=== PATIENT | female | born 1950 | race Caucasian/White ===

== ENCOUNTER 2024-05-26 14:17 | Outpatient (CLI) | payer MEDICARE, OTHER, SELFPAY ==
--- NOTE | ~2024-05-26 | CT_ITS ---
EXAMINATION: CT shoulder RT wo con DATE: 05/26/2024 14:28 INDICATION: Right shoulder osteoarthritis. Preoperative planning. TECHNIQUE: Computed tomography (CT) of the right shoulder was performed without intravenous contrast. Automated exposure control and iterative reconstruction technique were employed. The dose-length pro duct was 270.06 mGy-cm. COMPARISON: None FINDINGS: Alignment is normal. No fracture. There is severe osteoarthritis of acromioclavicular joint . There is advanced osteoarthritis of glenohumeral joint including bone volume loss of the glenoid. T here is severe subacromial/subdeltoid bursitis with loose bodies. There is a moderate-sized glenohume ral joint with loose bodies. There is mild fatty atrophy of supraspinatus and teres minor muscle millan ies. IMPRESSION: 1. Advanced glenohumeral joint osteoarthritis including bone volume loss of the glenoid. 2. Severe osteoarthritis of acromioclavicular joint. 3. Severe subacromial/subdeltoid bursitis with loose bodies. 4. Moderate-sized glenohumeral joint effusion with loose bodies. Reviewed, dictated and finalized at location A. THERAPY ASST
== END 2024-05-26 14:18 | disposition home or self-care (01) ==
LOC: ANHIMG 14:18
PROVIDERS: Visit Provider Orthopaedic Surgery
DX: Z01.818 Encounter for other preprocedural examination (principal); M19.011 Primary osteoarthritis, right shoulder; M75.51 Bursitis of right shoulder; M24.011 Loose body in right shoulder; M25.411 Effusion, right shoulder
CPT/HCPCS: 73200

== ENCOUNTER 2024-08-10 11:19 | Outpatient (CLI) | payer MEDICARE, OTHER, SELFPAY ==
[2024-08-10 13:07] LABS: Basophils Absolute Auto 0.1 K/mm3 (0.0-0.1); Basophils Percent Auto 1.2 % (0.2-1.2); Eosinophils Absolute Auto 0.1 K/mm3 (0-0.3); Eosinophils Percent Auto 1.6 % (0-4.4); Hematocrit 44.2 % (37.0-47.0); Hemoglobin 14.8 g/dL (12.0-15.0); Immature Granulocyte Absolute 0.02 K/mm3 (0.00-0.031); Immature Granulocyte Percent A 0.3 % (0-0.5); Lymphocytes Absolute Auto 1.86 K/mm3 (0.9-3.2); Lymphocytes Percent Auto 24.3 % (18.3-44.2); Mean Corpuscular HGB Conc 33.5 g/dl (32-36); Mean Corpuscular Hemoglobin 31.2 pg (26-34); Mean Corpuscular Volume 93.1 fl (80-100); Mean Platelet Volume 9.6 fl (7.4-10.4); Monocytes Absolute Auto 0.7 K/mm3 (0.1-0.6); Monocytes Percent Auto 9.1 % (2.6-8.5); Neutrophils Absolute Auto 4.9 K/mm3 (1.3-6.7); Neutrophils Percent Auto 63.5 % (45.5-73.1); Platelet Count Result 226 k/mm3 (150-375); Red Blood Count 4.75 M/mm3 (4.2-5.4); Red Cell Distribution Width 12.3 % (11.5-14.5); White Blood Count 7.7 K/mm3 (4.5-10.0)
[2024-08-10 14:43] LABS: MRSA (PCR) NOT DETECTED (NOT DETECTE)
--- OUTSIDE RECORDS SUMMARY | 2024-08-11 23:55 | XMS_ITS | Patient Health Summary ---
Author Organization [facility] Address [address] [place] [address] Care Team Providers Care Communication Analyst Name Role Phone Unknown, Provider Primary Care Provider Unavaila ble Note from [facility],non-owned Affiliates and Associated Physician Practices is amultiple site organization consisting of ambulatory clinics and hospital sitesin [place], [place], [place] and [place]. This disclosure is being madepursuant to the Care Everywhere program and may not contain all information available regarding this patient. Last updated 18.[facility] [employer] Allergies * Propranolol Hcl Cr * Penicillins Medications * Be aware that medications may not be up to date on this document. Alwaysverify current medications with the patient. * Cholecalciferol (VITAMIN D3) 3000 UNITS Take 3,000 Units by mouth Reasons: 3x a week * Multiple Vitamin (MULTI VITAMIN DAILY PO) Take by mouth once daily * Probiotic Product (PROBIOTIC DAILY PO) Take by mouth once daily * [id number] PO * Walnut-3 Fatty Acids (FISH OIL) 1000 MG capsule Take 1,000 mg by mouth once daily Reported on 08/08/2016 * [place] 3 340 MG capsule Take 1 Cap by mouth once daily * metoprolol succinate XL 24hr (TOPROL XL) 25 MG tablet Take 25 mg by mouth once daily * levothyroxine (SYNTHROID) 150 MCG tablet Take 150 mcg by mouth daily before breakfast Social History Tobacco Use Types Packs/Day Years Used Date Smoking Tobacco: Never Sex and Gender Information Value Date Recorded Sex Assigned at Not on file Gender Identity Not on file Sexual Orientation Not on file Last Filed Vital Signs Vital Sign Reading Time Taken Comments Blood Pressure 146/97 08/08/2016 11:03 AM FOREIGN TRADE TEACHER Pulse 72 08/08/2016 11:03 AM FOREIGN TRADE TEACHER Temperature - - Respiratory Rate - - Oxygen Saturation - - Inhaled Oxygen Concentration - - Weight 79.4 kg (175 lb) 08/08/2016 11:03 AM FOREIGN TRADE TEACHER Height 162.6 cm (5' 4 ) 08/08/2016 11:03 AM FOREIGN TRADE TEACHER Body Mass Index 30.04 08/08/2016 11:03 AM FOREIGN TRADE TEACHER Procedures * URINALYSIS AUTO - POINT OF CARE(Performed 08/08/2016) Performed for Hematuria Results * URINALYSIS AUTO - POINT OF CARE (08/08/2016 11:10 AM FOREIGN TRADE TEACHER) Clarity UA POCT --- Color UA POCT --- Leukocyte UA negative Negative Nitrite UA POCT negative Negative Urobilinogen UA 0.2 0.1 - 1.0 Protein UA POCT negative Negative pH UA 7.0 5.0 - 8.0 pH units Blood UA trace-intact Negative Specific [place] UA POCT 1.020 1.002 - 1.030 Ketone UA negative Negative Bilirubin UA POCT negative Negative Glucose UA negative Negative Urine URINE / Unknown 08/08/2016 1 1:10 AM FOREIGN TRADE TEACHER Liborio Vuong MD LAB - POINT OF CARE ORDERABLES Care Teams Communication Analyst Relationship Specialty Start Date End Date Unknown, Provider PCP - General 08/08/16
--- OUTSIDE RECORDS SUMMARY | 2024-08-11 23:55 | XMS_ITS | Clinical Summary ---
Author Organization [facility] [employer] Address [address] [place] [address] Care Team Providers Care Packager Head Name Role Phone Unknown, Provider Primary Care Provider Unavaila ble Source Comments [facility] [employer],non-owned Affiliates and Associated Physician Practices is amultiple site organization consisting of ambulatory clinics and hospital sitesin [place], [place], [place] and [place]. This disclosure is being madepursuant to the Care Everywhere program and may not contain all information available regarding this patient. Last updated 18.[facility] [employer] Allergies Active Allergy Reactions Criticality Noted Date Comments Propranolol Hcl Cr 07/24/2016 Penicillins 07/24/2016 Medications * Be aware that medications may not be up to date on this document. Alwaysverify current medications with the patient. Medication Sig Dispensed Refills Start Date End Date Status Cholecalciferol (VITAMIN D3) 3000 UNITSIndications:3x a week Take 3,000 Units by mouth Reasons: 3x a week Active Multiple Vitamin (MULTI VITAMIN DAILY PO) Take by mouth once daily Active Probiotic Product (PROBIOTIC DAILY PO) Take by mouth once daily Active AKEXBTT-[id number]-EIS C PO Active [place]-3 Fatty Acids (FISH OIL) 1000 MG capsule Take 1,000 mg by mouth once daily Reported on 08/08/2016 Active [place] 3 340 MG capsule Take 1 Cap by mouth once daily Active metoprolol succinate XL 24hr (TOPROL XL) 25 MG tablet Take 25 mg by mouth once daily Active levothyroxine (SYNTHROID) 150 MCG tablet Take 150 mcg by mouth daily before breakfast Active Family History Medical History Relation Name Comments Cancer - Other Brother leukemia Cancer - Other Father medulary thyr oid, skin CVA<65(female) Mother Hypertension Mother Relation Name Status Comments Brother Alive Father Alive Mother Social History Tobacco Use Types Packs/Day Years Used Date Smoking Tobacco: Never Sex and Gender Information Value Date Recorded Sex Assigned at Not on file Gender Identity Not on file Sexual Orientation Not on file Last Filed Vital Signs Vital Sign Reading Time Taken Comments Blood Pressure 146/97 08/08/2016 11:03 AM ELL TEACHER Pulse 72 08/08/2016 11:03 AM ELL TEACHER Temperature - - Respiratory Rate - - Oxygen Saturation - - Inhaled Oxygen Concentration - - Weight 79.4 kg (175 lb) 08/08/2016 11:03 AM ELL TEACHER Height 162.6 cm (5' 4 ) 08/08/2016 11:03 AM ELL TEACHER Body Mass Index 30.04 08/08/2016 11:03 AM ELL TEACHER Plan of Treatment Health Maintenance Due Date Last Done Comments BONE DENSITY TESTING 1950 COLOGUARD (AGES 45-75) - COL ON CA SCREENING 1950 COLON MONITORING 1950 COLONOSCOPY - COLON CA SCREENING 1950 CT COLONOGRAPHY - COLON CA SCREENING 1950 Colorectal Cancer Screening 1950 FIT - COLON CA SCREENING 1950 FLEX SIG - COLON CA SCREENING 1950 LIPID TESTING 1950 MAMMOGRAM 1950 HEPATITIS C SCREENING 08/24/1969 DTAP/TDAP/TD VACCINES (1 - Tdap) 1970 PNEUMOCOCCAL VACCINE 50+ (1 of 1 - PCV) 2001 ZOSTER VACCINE (1 of 2) 2001 COVID-19 VACCINE ( - 2023-2 5 season) 2024 INFLUENZA VACCINE (#1) 2024 DEPRESSION SCREENING 07/20/2024 Respiratory Syncytial Virus (RSV) Vaccine Pt: or over 60 yrs (1 - 1-dose 75+ series) 2026 HEPATITIS B VACCINE Aged Out No longe r eligible based on patient's age to complete this topic HIB VACCINE Aged Out No longer eligi ble based on patient's age to complete this topic HPV VACCINE Aged Out No longer eligi ble based on patient's age to complete this topic MENINGOCOCCAL (Group B) VACCINE Aged Out No longer eligible based on patient's age to complete this topic MENINGOCOCCAL VACCINE Aged Out No dorothea dang eligible based on patient's age to complete this topic Care Teams Packager Head Relationship Specialty Start Date End Date Unknown, Provider PCP - General 08/08/16
--- OUTSIDE RECORDS SUMMARY | 2024-08-11 23:55 | XMS_ITS | Referral Summary ---
Author Organization [facility] [employer] Address [address] [place] [address] Care Team Providers Care Resp Ther Name Role Phone Unknown, Provider Primary Care Provider Unavaila ble Source Comments [facility],non-owned Affiliates and Associated Physician Practices is amultiple site organization consisting of ambulatory clinics and hospital sitesin [place], [place], [place] and [place]. This disclosure is being madepursuant to the Care Everywhere program and may not contain all information available regarding this patient. Last updated 18.[facility] [employer] Allergies Active Allergy Reactions Criticality Noted Date [...] PO) Take by mouth once daily Active ZARXLAL-[id number]-NJJ C PO Active Merino-3 Fatty Acids (FISH OIL) 1000 MG capsule Take 1,000 mg by mouth once daily Reported on 08/08/2016 Active [place] 3 340 MG capsule Take 1 Cap by mouth once daily Active metoprolol succinate XL 24hr (TOPROL XL) 25 MG tablet Take 25 mg by mouth once daily Active levothyroxine (SYNTHROID) 150 MCG tablet Take 150 mcg by mouth daily before breakfast Active Social History Tobacco Use Types Packs/Day Years Used Date Smoking Tobacco: Never Sex and Gender Information Value Date Recorded Sex Assigned at Not on file Gender Identity Not on file Sexual Orientation Not on file Last Filed Vital Signs Vital Sign Reading Time Taken Comments Blood Pressure 146/97 08/08/2016 11:03 AM VENEER JOINTER OFFBEARER Pulse 72 08/08/2016 11:03 AM VENEER JOINTER OFFBEARER Temperature - - Respiratory Rate - - Oxygen Saturation - - Inhaled Oxygen Concentration - - Weight 79.4 kg (175 lb) 08/08/2016 11:03 AM VENEER JOINTER OFFBEARER Height 162.6 cm (5' 4 ) 08/08/2016 11:03 AM VENEER JOINTER OFFBEARER Body Mass Index 30.04 08/08/2016 11:03 AM VENEER JOINTER OFFBEARER Plan of Treatment Not on file Care Teams Resp Ther Relationship Specialty Start Date End Date Unknown, Provider PCP - General 08/08/16
--- OUTSIDE RECORDS SUMMARY | 2024-08-11 23:56 | XMS_ITS | Encounter Summary ---
Author Organization [facility] Address [address] [place] [address]. [place] [address] [place] [address] Care Team Providers Care Principal Product Manager Name Role Phone Misti Harris MD Unavailable [phone] Rashawn Almazan MD Unavailable [phone] Ismael Cook DO Primary Care Provider Chrissy Easton [facility] Primary Care Provider + Encounter Details Date Type Department Care Team (Late st Contact Info) Description 09/26/2021 [employer] Message [place] [id number] [place] [address] Ismael Cook DO [address] [facility] [address] [place] [address] appt of 09/19/21 Social History Tobacco Use Types Packs/Day Years Used Date Smoking Tobacco: Never Smokeless Tobacco: Never Alcohol Use Standard Drinks/Week Comments Yes 0 (1 standard drink = 0.6 oz pur e alcohol) rarely AUDIT-C Answer Date Recorded Q1: How often do you have a drink containing alc ohol? Monthly or less 11/21/2020 Average Number of Drinks Not on file 021 Frequency of Binge Drinking Not on file 11/2020 PHQ-2 Answer Date Recorded PHQ-2 Score - If the patient scores above 3, please move on to questions 3-9 0 11/21/2020 Comments No Sex and Gender Information Value Date Recorded Sex Assigned at Not on file Legal Sex Female 4:22 PM CDT Gender Identity Female 08/06/2021 1:53 PM CONTACT CENTER SPECIALIST Sexual Orientation Straight 08/06/2021 1: 53 PM CONTACT CENTER SPECIALIST COVID-19 Exposure Response Date Recorded In the last 10 days, have yo u been in contact with someone who was confirmed or suspected to have Coronavirus/COVID-19? No / Unsure 09/18/2021 5:56 PM CONTACT CENTER SPECIALIST documented as of this encounter Functional Status * RETIRED Are you deaf or do you have serious difficulty hearing Answer Date of Assessment Author Status No 12/19/2018 2:36 AM CDT Activ e * RETIRED Are you blind or do you have serious difficulty seeing, even when wearing glasses? Answer Date of Assessment Author Status No 12/19/2018 2:36 AM CDT Activ e * Do you have serious difficulty walking or climbing stairs? Answer Date of Assessment Author Status No 12/19/2018 2:36 AM AUBRIET Cassia Ugalde RN Active * Do you have difficulty dressing or bathing? Answer Date of Assessment Author Status No 12/19/2018 2:36 AM Cassia Marshall RN Active * Because of a physical, mental, or emotional condition, do you have difficulty doing errands alone such as visiting a doctor's office or shopping? Answer Date of Assessment Author Status No 12/19/2018 2:36 AM Cassia Marshall RN Active documented as of this encounter Mental Status * Because of a physical, mental, or emotional condition, do you have serious difficulty concentrating, remembering, or making decisions? Answer Entry Date Author Status No 12/19/2018 2:36 AM Cassia Marshall RN Active documented in this encounter Plan of Treatment Upcoming Encounters Date Type Department Care Team (Late st Contact Info) Description 2024 10:00 AM CONTACT CENTER SPECIALIST Office Visit [facility] [address] [place] [address] eKerthi Recinos NP-C [address] [facility] [address] [place] [address] documented as of this encounter Visit Diagnoses Not on filedocumented in this encounter Care Teams Principal Product Manager Relationship Specialty Start Date End Date Janetkamari Ismael DO Eleazar [facility]. [address] [place] [address] PCP - General FAMILY PRACTICE 04/29/21 10/25/23 Chrissy Easton, [facility]- [address] [place] [id number] PCP - General NURSE PRACTITIONER 10/26/23 Misti Harris MD [facility]. [facility] [address] [place] [address] Basket Hand Braider INTERVENTIONAL CARDIOLOGY 12/24/18 Rashawn Almazan MD [facility]. [address] [place] [address] [place] Paramedic Rn CARDIOVASCULAR DISEASE 12/19/18 documented as of this encounter
--- OUTSIDE RECORDS SUMMARY | 2024-08-11 23:56 | XMS_ITS | Encounter Summary ---
Author Organization [facility] Address [address] [place] [address]. [place], [place] [id number] [place] [address] Care Team Providers Care Director Medical Safety Name Role Phone Moe Arndt [facility] Primary Care Provider [phone] Misti Harris MD Unavailable [phone] Rashawn Almazan MD Unavailable [phone] Ismael Cook DO Primary Care Provider Chrissy Easton [facility] Primary Care Provider + Encounter Details Date Type Department Care Team (Late st Contact Info) Description 11/09/2017 [facility] Conversion Moe Arndt, [facility] [address] [facility] [address] [place] [address] Social History Tobacco Use Types Packs/Day Years Used Date Smoking Tobacco: Never Assessed Comments Unknown Sex and Gender Information Value Date Recorded Sex Assigned at Not on file Legal Sex Female 4:22 PM CDT Gender Identity Female 08/06/2021 1:53 PM SOLDERER ASSEMBLY REPAIR Sexual Orientation Straight 08/06/2021 1: 53 PM SOLDERER ASSEMBLY REPAIR documented as of this encounter Miscellaneous Notes * Letter - KRISTEN Mccord - 11/09/2017 12:00 AM CDT 11-09-2017 , Liseth Farris [place] [address] [place] [address] : 1950 Radiology: MRI LE, Left Ankle Without contrast M25.572 Pain in left ankle and joints of left foot Fasting [] Non-Fasting [] Normal [] Stat [] Electronically Signed By: Moe Arndt ECONOMICS ANALYST ERER ASSEMBLY REPAIR documented in this encounter Plan of Treatment Upcoming Encounters Date Type Department Care Team (Late st Contact Info) Description 2024 10:00 AM SOLDERER ASSEMBLY REPAIR Office Visit [facility] [phone] Keerthi Recinos, CLINICAL OUTCOMES MANAGER-C [facility] [address] [place] [address] documented as of this encounter Visit Diagnoses Not on filedocumented in this encounter Care Teams Director Medical Safety Relationship Specialty Start Date End Date Moe Arndt FNP [address] [facility] [address] [place] [address] PCP - General NURSE PRACTITIONER 06/30/18 04/28/21 Ismael Cook DO [facility] [address] [place], [place] [id number] PCP - General FAMILY PRACTICE 04/29/21 10/25/23 Chrissy Easton FNP- [address] [place] [address] PCP - General NURSE PRACTITIONER 10/26/23 Misti Harris MD [facility] [address] [place] [address] Tire Spotter INTERVENTIONAL CARDIOLOGY 12/24/18 Rashawn Almazan MD [facility]. [address] [place] [address] [place] Equipment Operation Instructor CARDIOVASCULAR DISEASE 12/19/18 documented as of this encounter
--- OUTSIDE RECORDS SUMMARY | 2024-08-11 23:56 | XMS_ITS | Encounter Summary ---
Author Organization [facility] Address Formerly [facility] [place] [address] [place] [address] Care Team Providers Care General Warehouse Associate Name Role Phone Misti Harris MD Unavailable [phone] Rashawn Almazan MD Unavailable Chrissy Easton [facility] Primary Care Provider + Reason for Referral * Imaging (Routine) - Closed Specialty Diagnoses / Procedures Referred By Onofre stanford Referred To Contact RADIOLOGY Diagnoses Nonrheumatic mitral valve regurgitation Procedures USE ECHOCARDIOGRAM Rashawn Almazan MD [address] [address] Phone: tel: fax: Referral ID Status Reason Start Date Expiration Date Visits Re quested Visits Authorized [id number] Closed 01/25/2024 02/24/2025 1 1 RNAL CONTROLS CONSULTANT Reason for Visit * Imaging (Routine) - Closed Specialty Diagnoses / Procedures Referred By Onofre stanford Referred To Contact RADIOLOGY Diagnoses Nonrheumatic mitral valve regurgitation Procedures USE ECHOCARDIOGRAM Rashawn Almazan MD [address] [address] Phone: tel: fax: Referral ID Status Reason Start Date Expiration Date Visits Re quested Visits Authorized [id number] Closed 01/25/2024 02/24/2025 1 1 Encounter Details Date Type Department Care Team (Late st Contact Info) Description 08/08/2024 9:10 AM INTERNAL CONTROLS CONSULTANT - 08/08/2024 11:59 PM INTERNAL CONTROLS CONSULTANT Hospital Encounter [facility] [address] [place] [address] Rashawn Almazan MD [address] [place] [address] Arrived Discharge Disposition: Home or Self Care (Routine Discharge) Social History Tobacco Use Types Packs/Day Years [...] on file 11/2020 PHQ-2 Answer Date Recorded Patient Health Questionnaire-2 Score 0 05/24/2024 Comments No Sex and Gender Information Value Date Recorded Sex Assigned at Not on file Legal Sex Female 4:22 PM CDT Gender Identity Female 08/06/2021 1:53 PM INTERNAL CONTROLS CONSULTANT Sexual Orientation Straight 08/06/2021 1: 53 PM INTERNAL CONTROLS CONSULTANT documented as of this encounter Functional Status [...] Author Status No 12/19/2018 2:36 AM CDT Cassia Ugalde RN Active * Do you have difficulty dressing or bathing? Answer Date of Assessment Author Status No 12/19/2018 2:36 AM AUBRIET Cassia Ugalde RN Active * Because of a physical, [...] Marshall RN Active documented in this encounter Medications at Time of Discharge acetaminophen (TYLENOL) 500 MG tablet Take 2 tablets (1,000 mg total) by mouth every 6 (six) hours as needed. 2 amLODIPine (NORVASC) 10 MG tabletIndications:E ssential hypertension Take 1 tablet by mouth once daily 90 tablet 1 4 artificial tears 83-15 % ophthalmic ointmentIndications :soothe eye drops Place into both eyes as needed. Indications: soothe eye drops 9 Ascorbic Acid (VITAMIN C) 100 MG tablet Take 1 tablet (100 mg total) by mouth every evening. 90 tablet 9 gelzqvi-smxvhcsqr-h inc 333-133-5 MG TabIndications:thre e times a week Take by mouth see administration instructions. cholecalciferol 125 MCG (5000 UT) TabIndications:3 times a week Take 1 tablet (5,000 Units total) by mouth daily. Indications: 3 times a week 30 tablet 9 clopidogrel (PLAVIX) 75 MG tablet Take 1 tablet by mouth once daily 90 tablet 1 4 fish oil 1000 MG Cap capsule Take 1 capsule (1,000 mg total) by mouth daily. ibuprofen (MOTRIN) 600 MG tablet Take 1 tablet (600 mg total) by mouth every 6 (six) hours as needed. 2 losartan (COZAAR) 25 MG tabletIndications:E ssential hypertension Take 1 tablet (25 mg total) by mouth daily. 90 tablet 1 4 metoprolol succinate ER (TOPROL-XL) 50 MG 24 hr tabletIndications:E ssential hypertension Take 1 tablet (50 mg total) by mouth daily. 90 tablet 1 4 Multiple Vitamins-Minerals (DAILY MULTIVITAMIN) Cap Take by mouth daily. 6 nitroglycerin (NITROSTAT) 0.[address] 1 tablet (0.4 mg total) under the tongue every 5 (five) minutes as needed for Chest Pain. 25 tablet 2 pantoprazole EC (PROTONIX) 40 MG tablet Take 1 tablet by mouth once daily 42 tablet 2 polyethylene glycol (GLYCOLAX) 17 GM/SCOOP powder Take 17 g by mouth daily. 2 Potassium 99 MG tabletIndications:1 tab 3 times a week Take by mouth see administration instructions. Three times a week 9 Probiotic Product (ADVANCED PROBIOTIC) Cap Take 1 capsule by mouth daily. 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 [address] [address] documented as of this encounter Procedures Procedure Name Priority Date/Time Associated Diagnosis Comments USE ECHOCARDIOGRAM Routine 08/08/2024 10 :37 AM INTERNAL CONTROLS CONSULTANT Nonrheumatic mitral valve regurgitation documented in this encounter Results * USE ECHOCARDIOGRAM (08/08/2024 10:37 AM INTERNAL CONTROLS CONSULTANT) Anatomical Region Laterality Modality Cardiac Ultrasound 08/08/2024 9:54 AM INTERNAL CONTROLS CONSULTANT Narrative 08/10/2024 6:32 PM INTERNAL CONTROLS CONSULTANT ?ANANTH ? OUTREACH Pat.Name: ??Liseth Mckeon ? Pat.ID: ?[id number] ? St.Date: ?? 08/08/2024 ? Refer.: ??Outreach, [facility] Imaging Exam Time: 9:54:00 AM ?Study Type:OUTREACH ? Height: ?64.2 in ? Weight: ?163 lb ? BSA: ? 1.8 m2 ?Age: ??1950,73Y ? Sex: ? F ? Sonogrphr: Cr ? Pat. Stat.:Outpatient ? Reason for Study:Mitral regurgitation Procedures: Study performed at [place], [place] and interpreted by [facility]. 2D, M-mode, Doppler, Color Flow ++++++++++++++++++++++++++++++++++++ SUMMARY: ++++++++++++++++++++++++++++++++++++ The left ventricular size is normal. The left ventricular systolic function is normal. Estimated left ventricular ejection fraction is 60-65%. Left ventricular diastolic function is abnormal (grade 1 - impaired relaxation). Wall motion appears normal in all segments. The right ventricular size is normal. Right ventricular systolic function is normal. Right ventricular systolic pressure is 28 mmHg. No evidence of pericardial effusion. Inferior vena cava shows >50% collapse with respiration consistent with normal right atrial pressure. Mild calcification of aortic valve leaflets. Mild mitral regurgitation. Mild to moderate tricuspid regurgitation. ++++++++++++++++++++++++++++++++++++ FINDINGS: ++++++++++++++++++++++++++++++++++++ LV: ? The left ventricular size is normal. The left ventricular ?systolic function is normal. Estimated left ventricular ?ejection fraction is 60-65%. Left ventricular diastolic ?function is abnormal (grade 1 - impaired relaxation). WM: ? Wall motion appears normal in all segments. RV: ? The right ventricular size is normal. Right ventricular ?systolic function is normal. Right ventricular systolic ?pressure is 28 mmHg. LA: ? Left atrial size is normal. RA: ? The right atrial size is normal. DIXIE: ? No evidence of pericardial effusion. AO: ? Aorta is normal. SVn: ?Inferior vena cava is normal. Inferior vena cava shows >50% ?collapse with respiration consistent with normal right ?atrial pressure. AV: ? The aortic valve is trileaflet. No evidence of aortic valve ?stenosis. No evidence of aortic regurgitation. Mild ?calcification of aortic valve leaflets. MV: ? Structurally normal mitral valve. Mild mitral regurgitation. ?Mild thickening of mitral valve leaflets. PV: ? Trace pulmonic regurgitation. Pulmonic valve not well ?visualized. TV: ? Structurally normal tricuspid valve. Mild to moderate ?tricuspid regurgitation. <Electronic Signature> 08/10/2024 06:32 PM Rashawn Almazan M.D. Procedure Note Rashawn Almazan MD - 08/10/2024 ANANTH Baptiste.Name: Liseth Mckeon Oliva.ID: [id number] .Date: 08/08/2024 Refer.MD: [facility], [facility] Imaging Exam Time: 9:54:00 AM Study Type:OUTREACH Height: 64.2 in Weight: 163 lb BSA: 1.8 m2 Age: 2 1950,73Y Sex: F Sonogrphr: [place] Pat. Stat.:Outpatient Reason for Study:Mitral regurgitation Procedures: Study performed at [place], [place] and interpreted by [facility]. 2D, M-mode, Doppler, Color Flow ++++++++++++++++++++++++++++++++++++ SUMMARY: ++++++++++++++++++++++++++++++++++++ The left ventricular size is normal. The left ventricular systolic function is normal. Estimated left ventricular ejection fraction is 60-65%. Left ventricular diastolic function is abnormal (grade 1 - impaired relaxation). Wall motion appears normal in all segments. The right ventricular size is normal. Right ventricular systolic function is normal. Right ventricular systolic pressure is 28 mmHg. No evidence of pericardial effusion. Inferior vena cava shows >50% collapse with respiration consistent with normal right atrial pressure. Mild calcification of aortic valve leaflets. Mild mitral regurgitation. Mild to moderate tricuspid regurgitation. ++++++++++++++++++++++++++++++++++++ FINDINGS: ++++++++++++++++++++++++++++++++++++ LV: The left ventricular size is normal. The left ventricular systolic function is normal. Estimated left ventricular ejection fraction is 60-65%. Left ventricular diastolic function is abnormal (grade 1 - impaired relaxation). WM: Wall motion appears normal in all segments. RV: The right ventricular size is normal. Right ventricular systolic function is normal. Right ventricular systolic pressure is 28 mmHg. LA: Left atrial size is normal. RA: The right atrial size is normal. DIXIE: No evidence of pericardial effusion. AO: Aorta is normal. SVn: Inferior vena cava is normal. Inferior vena cava shows >50% collapse with respiration consistent with normal right atrial pressure. AV: The aortic valve is trileaflet. No evidence of aortic valve stenosis. No evidence of aortic regurgitation. Mild calcification of aortic valve leaflets. MV: Structurally normal mitral valve. Mild mitral regurgitation. Mild thickening of mitral valve leaflets. PV: Trace pulmonic regurgitation. Pulmonic valve not well visualized. TV: Structurally normal tricuspid valve. Mild to moderate tricuspid regurgitation. <Electronic Signature> 08/10/2024 06:32 PM Rashawn Almazan M.D. Rashawn Almazan MD ECHO Final Result documented in this encounter Visit Diagnoses Diagnosis Nonrheumatic mitral valve regurgitation documented in this encounter Care Teams General Warehouse Associate Relationship Specialty Start Date End Date Chrissy Easton, DISPATCHER SERVICE-BC [address] [place] [address] PCP - General NURSE PRACTITIONER 10/26/23 Misti Harris MD [address] [place] [address] Topographical Drafter INTERVENTIONAL CARDIOLOGY 12/24/18 Rashawn Almazan MD [address] [place] [address] Ledy Glass Cutter CARDIOVASCULAR DISEASE 12/19/18 documented as of this encounter
--- OUTSIDE RECORDS SUMMARY | 2024-08-11 23:56 | XMS_ITS | Encounter Summary ---
Author Organization [facility] Address [address] [place] [address]. [place] [address] [place] [address] Care Team Providers Care Transportation Job Titles Name Role Phone Misti Harris MD Unavailable [phone] Rashawn Almazan MD Unavailable [phone] Ismael Cook DO Primary Care Provider Chrissy Easton [facility] Primary Care Provider + Encounter Details Date Type Department Care Team (Late st Contact Info) Description 01/08/2023 BetaVersity Message Enc [facility]'[address] [address] Zeny [facility] Provider Stress Test looks good Social History Tobacco Use Types Packs/Day Years [...] Date Recorded Patient Health Questionnaire-2 Score 0 01/02/2023 Comments No Sex and Gender Information Value Date Recorded Sex Assigned at Not on file Legal Sex Female 4:22 PM CDT Gender Identity Female 08/06/2021 1:53 PM SLITTER SCORER Sexual Orientation Straight 08/06/2021 1: 53 PM SLITTER SCORER COVID-19 Exposure Response Date Recorded In the last 10 days, have yo u been in contact with someone who was confirmed or suspected to have Coronavirus/COVID-19? No / Unsure 01/02/2023 3:14 PM CDT documented as of this encounter Functional Status [...] 2:36 AM AUBRIET Cassia Ugalde RN Active documented as of this encounter Mental Status * Because of a physical, mental, or emotional condition, do you have serious difficulty concentrating, remembering, or making decisions? Answer Entry Date Author Status No 12/19/2018 2:36 AM Cassia Marshall RN Active documented in this encounter Plan of Treatment Upcoming Encounters Date Type Department Care Team (Late st Contact Info) Description 2024 10:00 AM SLITTER SCORER Office Visit [facility] [address] [place], [place] [address] [address] Keerthi Recinos NP-C [facility] [address] [place] [address] documented as of this encounter Visit Diagnoses Not on filedocumented in this encounter Care Teams Transportation Job Titles Relationship Specialty Start Date End Date Ismael oCok DO Three [facility]. [facility] [address] [place] [address] PCP - General FAMILY PRACTICE 04/29/21 10/25/23 Chrissy Easton, [facility] [address] [place] [address] PCP - General NURSE PRACTITIONER 10/26/23 Misti Harris MD [facility]. [facility] [address] [place] [address] Windrower Operator INTERVENTIONAL CARDIOLOGY 12/24/18 Rashawn Almazan MD [facility]. [facility] [address] [place] [address] Dennis Manager Employee Relations CARDIOVASCULAR DISEASE 12/19/18 documented as of this encounter
--- OUTSIDE RECORDS SUMMARY | 2024-08-11 23:56 | XMS_ITS | Referral Summary ---
Author Organization [facility] Address [address] [place] [address] Care Team Providers Care Postal Delivery Officer Name Role Phone JanetIsmael benites Unavailable JanetIsmael benites Primary Care Provider [phone] Encounters Date Type Department Care Team Description 08/05/2024 Telephone [facility] Obstetrics and Gynecology [address] [facility] [address] [place] [phone] Sera Chase, RN 06/01/2024 Telephone [facility] Obstetrics and Gynecology [address] [facility] [address] [place] [phone] Sera Chase, RN Scheduling Appointments 05/30/2024 Telephone [facility] Obstetrics and Gynecology [address] [facility] 13th [place] [address] Sera Chase, RN from Last 3 Months Allergies Active Allergy Reactions Criticality Noted Date Comments Lisinopril Cough Low 05/22/2020 Penicillins Hives Medium 07/24/2016 Propranolol Shortness of breath High 06/09/2022 Eyiyfkm-Fwc-Nzt Reductase Inhibitors Other (See comments) Low 12/20/2018 Muscle aches Medications amLODIPine (NORVASC) 10 mg tabletIndicatio ns:hypertension Take 1 tablet (10 mg total) by mouth assistant controller before breakfast 1 Active clopidogreL (PLAVIX) 75 mg tabletIndicatio ns:myocardial infarction prevention,s/p stent 2019 Take 1 tablet (75 mg total) by mouth nightly 1 Active losartan (COZAAR) 25 mg tabletIndicatio ns:hypertension Take 1 tablet (25 mg total) by mouth assistant controller before breakfast 1 Active metoprolol XL (TOPROL-XL) 50 mg extended release tabletIndicatio ns:hypertension 1 tablet (50 mg total) nightly 1 Active thyroid (ARMOUR THYROID) 90 mg tabletIndicatio ns:hypothyroidi sm Take 90 mg by mouth assistant controller before breakfast 1 Active rosuvastatin (CRESTOR) 5 mg tabletIndicatio ns:hyperlipidem ia Take 1 tablet (5 mg total) by mouth nightly 1 Active cholecalciferol (VITAMIN D-3) 3,000 unit tabletIndicatio ns:supplement Take 1 tablet (3,000 Units total) by mouth assistant controller before breakfast Active potassium 99 mg tabletIndicatio ns:hypokalemia prevention Take 1 tablet (99 mg total) by mouth nightly 9 Active multivitamin tabletIndicatio ns:Vitamin Deficiency Prevention Take 1 tablet by mouth assistant controller before breakfast Active calcium-magnesi um-zinc 333-133-5 mg tabletIndicatio ns:RLS Take 1 tablet by mouth nightly Active coenzyme Q10 10 mg capsuleIndicati ons:supplement Take 1 capsule (10 mg total) by mouth nightly Active UNABLE TO FINDIndications :supplement Take 2 each by mouth assistant controller before breakfast Med Name: CitraNox Active ascorbic acid (VITAMIN C) 1,000 mg tabletIndicatio ns:supplement Take 1 tablet (1,000 mg total) by mouth 2 (two) times a day Active artificial tears,hypromell ose, 0.3 % drops Administer into affected eye(s) Active omega-3 fatty acids-fish oil 300-1,000 mg capsuleIndicati ons:hypertrigly ceridemia Take 2 capsules (2 g total) by mouth assistant controller before breakfast Active nitroglycerin (NITROSTAT) 0.[address] 1 tablet (0.4 mg total) under the tongue every 5 (five) minutes as needed for chest pain Active acetaminophen (TYLENOL) 500 mg tabletIndicatio ns:Pain Take 2 tablets (1,000 mg total) by mouth every 6 (six) hours as needed for pain 60 tablet 2 Active polyethylene glycol (MIRALAX) 17 gram/dose powder Take 17 g by mouth daily 235 g 2 Active Additional Information Patient taking differently:17 g oralAs needed, Reported on 08/17/2023 Active Problems Problem Noted Date Diagnosed Date 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 Pelvic mass in female 06/09/2022 Overview (06/09/2022): Added automatically from request for surgery [id number] Diverticulosis 08/26/2021 Esophageal stricture 08/26/2021 Gastroduodenitis 08/26/2021 Hiatal hernia 08/26/2021 Internal hemorrhoids 08/26/2021 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 Mixed hyperlipidemia 03/01/2021 Primary hypertension 03/01/2021 Coronary artery disease invo lving [place] coronary artery of [place] heart 03/01/2021 Chronic gastritis 12/01/2017 Hypothyroidism 10/02/2015 Osteoarthrosis 10/02/2015 Osteoarthritis of cervical spine 10/01/2009 Immunizations Name Administration Dates Next Due Influenza, Quadrivalent, Hig h Dose, Preservative Free, Intrr 05/19/2020 Influenza, Quadrivalent, Spl it, Preservative Free, Intramuscular 06/02/2019 Influenza, Unspecified 06/21/2021 Moderna SARS-CoV-2 Monovalent Vaccination (12+ Y RS) 09/26/2020,2020 Td, adsorbed 12/18/1998 Social History Tobacco Use Types Packs/Day Years Used Date Smoking Tobacco: Never Tobacco Cessation:Counseling Given: Not Answered AUDIT-C Answer Date Recorded Q1: How often do you have a drink containing alc ohol? 2-4 times a month 07/10/2022 Q2: How many drinks containi ng alcohol do you have on a typical day when you are drinking? 1 or 2 07/10/2022 Q3: How often do you have si x or more drinks on one occasion? Never 07/10/2022 Comments No Sex and Gender Information Value Date Recorded Sex Assigned at Not on file Legal Sex Female 8:12 AM MAKE UP ARRANGER Gender Identity Not on file Sexual Orientation Not on file Last Filed Vital Signs Vital Sign Reading Time Taken Comments Blood Pressure 142/82 08/17/2023 11:23 AM MAKE UP ARRANGER Pulse 74 08/17/2023 11:23 AM MAKE UP ARRANGER Temperature 36.8 ??C (98.2 ??F) 08/17/2023 11:[address] Respiratory Rate 16 08/17/2023 11:23 AM MAKE UP ARRANGER Oxygen Saturation 97% 08/17/2023 11:23 AM MAKE UP ARRANGER Inhaled Oxygen Concentration - - Weight 75.8 kg (167 lb 1.6 oz) 08/17/2023 11:23 AM MAKE UP ARRANGER Height 160 cm (5' 2.99 ) 08/17/2023 11:23 AM MAKE UP ARRANGER Body Mass Index 29.61 08/17/2023 11:23 AM MAKE UP ARRANGER Plan of Treatment Not on file Insurance MEDICARE [facility] Address: [facility] [address] [place] [address] [facility] MEDICARE [employer] [place] [address] Care Teams Postal Delivery Officer Relationship Specialty Start Date End Date Ismael Cook DO [address] [place] [address] PCP - General Family Medicine 06/09/22 Ismael Cook DO [address] [place] [address] Family Medicine 05/22/22
--- OUTSIDE RECORDS SUMMARY | 2024-08-11 23:56 | XMS_ITS | Encounter Summary ---
Author Organization [facility] Address [address] [place] [address]. [place], [place] [address] [place] [address] Care Team Providers Care Billet Grinder Name Role Phone Moe Arndt [facility] Primary Care Provider [phone] Misti Harris MD Unavailable [phone] Rashawn Almazan MD Unavailable [phone] Ismael Cook DO Primary Care Provider Chrissy Easton [facility] Primary Care Provider + Encounter Details Date Type Department Care Team (Late st Contact Info) Description 07/06/2018 Dibbz Message [facility] [address] [place] [phone] [facility] [address] [place] [address] [address] [place] [address] Test Results Social History Tobacco Use Types Packs/Day Years Used Date Smoking Tobacco: Never Smokeless Tobacco: Never Alcohol Use Standard Drinks/Week Comments Yes 0 (1 standard drink = 0.6 oz pur e alcohol) rarely Comments Unknown Sex and Gender Information Value Date Recorded Sex Assigned at Not on file Legal Sex Female 4:22 PM CDT Gender Identity Female 08/06/2021 1:53 PM CLINICAL STAFF RN Sexual Orientation Straight 08/06/2021 1: 53 PM CLINICAL STAFF RN documented as of this encounter Plan of Treatment Upcoming Encounters Date Type Department Care Team (Late st Contact Info) Description 2024 10:00 AM CLINICAL STAFF RN Office Visit [facility] [address] [place] [phone] Keerthi Recinos, CURTAIN DRIER-C Three [facility]. [address] [place] [address] documented as of this encounter Visit Diagnoses Not on filedocumented in this encounter Care Teams Billet Grinder Relationship Specialty Start Date End Date Moe Arndt FNP [address] [place] [address] PCP - General NURSE PRACTITIONER 06/30/18 04/28/21 Ismael Cook DO [facility]. [address] [place] [address] PCP - General FAMILY PRACTICE 04/29/21 10/25/23 Chrissy Easton, PART TIME RECEPTIONIST- [address] [place] [id number] PCP - General NURSE PRACTITIONER 10/26/23 Misti Harris MD [facility]. [address] [place], [place] [phone] Fitting Room Associate INTERVENTIONAL CARDIOLOGY 12/24/18 Rashawn Almazan MD [facility] [address] [place], [place] [address] Ledy Ballaster CARDIOVASCULAR DISEASE 12/19/18 documented as of this encounter
--- OUTSIDE RECORDS SUMMARY | 2024-08-11 23:56 | XMS_ITS | Encounter Summary ---
Author Organization [facility] - [facility] Address [address] [place] [address]. [place] [address] [place] [address] Care Team Providers Care Chief Sustainability Officer Name Role Phone Moe Arndt [facility] Primary Care Provider [phone] Misti Harris MD Unavailable [phone] Rashawn Almazan MD Unavailable [phone] Ismael Cook Primary Care Provider Chrissy Easton [facility] Primary Care Provider + Encounter Details Date Type Department Care Team (Late st Contact Info) Description 08/01/2019 Community Orders [facility] EPICCARE LINK Henrietta Montgomery, CHUTE GREASER [address] [place] [address] Social History Tobacco Use Types Packs/Day Years Used Date Smoking Tobacco: Never Smokeless Tobacco: Never Alcohol Use Standard Drinks/Week Comments Yes 0 (1 standard drink = 0.6 oz pur e alcohol) rarely Comments No Sex and Gender Information Value Date Recorded Sex Assigned at Not on file Legal Sex Female 4:22 PM CDT Gender Identity Female 08/06/2021 1:53 PM TRIBUNAL MEMBER Sexual Orientation Straight 08/06/2021 1: 53 PM TRIBUNAL MEMBER documented as of this encounter Functional Status [...] 2:36 AM Cassia Marshall RN Active * Do you have difficulty [...] st Contact Info) Description 2024 10:00 AM TRIBUNAL MEMBER Office Visit [facility] [address] [place] [address] Keerthi Recinos, CHUTE GREASER-C [facility]. [facility] [address] [place] [address] documented as of this encounter Visit Diagnoses Not on filedocumented in this encounter Care Teams Chief Sustainability Officer Relationship Specialty Start Date End Date Moe Arndt FNP [address] [facility] [address] [place] [address] PCP - General NURSE PRACTITIONER 06/30/18 04/28/21 Ismael Cook DO [facility] [address] [place] [address] PCP - General FAMILY PRACTICE 04/29/21 10/25/23 Chrissy [place], REGISTERED NURSE MIDWIFE- [address] [place] [address] PCP - General NURSE PRACTITIONER 10/26/23 Misti Harris MD [address] [place] [address] Ambulance Mechanic INTERVENTIONAL CARDIOLOGY 12/24/18 Rashawn Almazan MD [address] [place] [address] [place] Long Goods Drier CARDIOVASCULAR DISEASE 12/19/18 documented as of this encounter
--- OUTSIDE RECORDS SUMMARY | 2024-08-11 23:56 | XMS_ITS | Encounter Summary ---
Author Organization [facility] Address [address] [place] [address]. [place] [address] [place] [address] Care Team Providers Care Condemnation Engineer Name Role Phone Moe Arndt [facility] Primary Care Provider [phone] Misti Harris MD Unavailable [phone] Rashawn Almazan MD Unavailable [phone] Ismael Cook Primary Care Provider Chrissy Easton [facility] Primary Care Provider + Encounter Details Date Type Department Care Team (Late st Contact Info) Description 12/25/2018 Abstract [facility] CONVERSION [address] [place] [address] , Generic Conversion, Social History Tobacco Use Types Packs/Day Years Used Date Smoking Tobacco: Never Smokeless Tobacco: Never Alcohol Use Standard Drinks/Week Comments Yes 0 (1 standard drink = 0.6 oz pur e alcohol) rarely Comments No Sex and Gender Information Value Date Recorded Sex Assigned at Not on file Legal Sex Female 4:22 PM CDT Gender Identity Female 08/06/2021 1:53 PM DRAMATIC ARTS HISTORIAN Sexual Orientation Straight 08/06/2021 1: 53 PM DRAMATIC ARTS HISTORIAN documented as of this encounter Functional Status [...] Assessment Author Status No 12/19/2018 2:36 AM Cassai Marshall RN Active * Do you have [...] st Contact Info) Description 2024 10:00 AM DRAMATIC ARTS HISTORIAN Office Visit [facility] [address] [place] [address] Keerthi Recinos, INDUSTRIAL RENDERER-C [facility]. [facility] [address] [place], [place] [id number] documented as of this encounter Visit Diagnoses Not on filedocumented in this encounter Care Teams Condemnation Engineer Relationship Specialty Start Date End Date Moe Arndt FNP [address] [facility] [address] [place] [address] PCP - General NURSE PRACTITIONER 06/30/18 04/28/21 Ismael Cook DO [facility]. [address] [place] [address] PCP - General FAMILY PRACTICE 04/29/21 10/25/23 Chrissy [place], AGENCY MANAGER- [address] [place] [address] PCP - General NURSE PRACTITIONER 10/26/23 Misti Harris MD [facility] [address] [place] [address] Meteorology Teacher INTERVENTIONAL CARDIOLOGY 12/24/18 Rashawn Almazan MD [facility] [address] [place] [address] [place] Desk Interviewer CARDIOVASCULAR DISEASE 12/19/18 documented as of this encounter
--- OUTSIDE RECORDS SUMMARY | 2024-08-11 23:56 | XMS_ITS | Encounter Summary ---
Author Organization [facility] Address [address] [place] [address]. [place], [place] [address] [place] [address] Care Team Providers Care Internal Revenue Service Agent Name Role Phone Moe Arndt [facility] Primary Care Provider [phone] Misti Harris MD Unavailable [phone] Rashawn Almazan MD Unavailable [phone] Ismael Cook DO Primary Care Provider Chrissy Easton [facility] Primary Care Provider + Encounter Details Date Type Department Care Team (Late st Contact Info) Description 10/23/2017 Abstract [facility] Conversion Moe Arndt, [facility] [address] [facility] [address] [place] [address] Social History Tobacco Use Types Packs/Day Years Used Date Smoking Tobacco: Never Assessed Comments Unknown Sex and Gender Information Value Date Recorded Sex Assigned at Not on file Legal Sex Female 4:22 PM CDT Gender Identity Female 08/06/2021 1:53 PM GALVANOMETER ASSEMBLER Sexual Orientation Straight 08/06/2021 1: 53 PM GALVANOMETER ASSEMBLER documented as of this encounter Miscellaneous Notes * Letter - KRISTEN Mccord - 10/23/2017 12:00 AM CDT Oct 23, 2017 Liseth Mckeon is released to go back to work. Patient should avoid prolonged standing, jumping, or quickly rotating on left foot. Thank you, Moe Arndt APN ANOMETER ASSEMBLER documented in this encounter Plan of Treatment Upcoming Encounters Date Type Department Care Team (Late st Contact Info) Description 2024 10:00 AM GALVANOMETER ASSEMBLER Office Visit [facility] [address] [place] [id number] Keerthi Recinos, TEACHER'S AIDE-C [facility]. [facility] [address] [place], [place] [address] documented as of this encounter Visit Diagnoses Not on filedocumented in this encounter Care Teams Internal Revenue Service Agent Relationship Specialty Start Date End Date Moe Arndt FNP [address] [facility] [address] [place] [address] PCP - General NURSE PRACTITIONER 06/30/18 04/28/21 Ismael Cook DO [facility]. [address] [place], [place] [address] PCP - General FAMILY PRACTICE 04/29/21 10/25/23 Chrissy Easton FNP- [address] [place] [address] PCP - General NURSE PRACTITIONER 10/26/23 Misti Harris MD [facility]. [address] [place], [place] [address] Acupuncture Physician INTERVENTIONAL CARDIOLOGY 12/24/18 Rashawn Almazan MD Three [facility]. [address] [address] Ledy Analysis Specialist CARDIOVASCULAR DISEASE 12/19/18 documented as of this encounter
--- OUTSIDE RECORDS SUMMARY | 2024-08-11 23:56 | XMS_ITS | Encounter Summary ---
Author Organization [facility] Address [address] [place] [address]. [place] [address] [place] [address] Care Team Providers Care Slitter Helper Name Role Phone Moe Arndt [facility] Primary Care Provider [phone] Misti Harris MD Unavailable [phone] Rashawn Almazan MD Unavailable Ismael Cook Primary Care Provider Chrissy Easton [facility] Primary Care Provider + Encounter Details Date Type Department Care Team (Late st Contact Info) Description 12/12/2014 Abstract [facility] CONVERSION [address] [place] [address] , Generic Conversion, Social History Tobacco Use Types Packs/Day Years Used Date Smoking Tobacco: Never Assessed Comments Unknown Sex and Gender Information Value Date Recorded Sex Assigned at Not on file Legal Sex Female 4:22 PM CDT Gender Identity Female 08/06/2021 1:53 PM PHYSICAL EDUCATION AIDE Sexual Orientation Straight 08/06/2021 1: 53 PM PHYSICAL EDUCATION AIDE documented as of this encounter Plan of Treatment Upcoming Encounters Date Type Department Care Team (Late Contact Info) Description 2024 10:00 AM PHYSICAL EDUCATION AIDE Office Visit [facility] [address] [place] [id number] Keerthi Recinos, FULL TIME STAFF INTERPRETER-C [facility]. [facility] [address] [place] [address] documented as of this encounter Visit Diagnoses Not on filedocumented in this encounter Care Teams Slitter Helper Relationship Specialty Start Date End Date Moe Arndt FNP [address] [facility] [address] [place] [address] PCP - General NURSE PRACTITIONER 06/30/18 04/28/21 Ismael Cook DO [facility]. [facility] [address] [place] [address] PCP - General FAMILY PRACTICE 04/29/21 10/25/23 Chrissy Easton FNP- [address] [place] [address] PCP - General NURSE PRACTITIONER 10/26/23 Misti Harris MD [facility]. [facility] [address] [place] [address] Recordist INTERVENTIONAL CARDIOLOGY 12/24/18 Rashawn Almazan MD [address] [facility] [address] [place] [address] Gardiner Premix Operator Concentrate CARDIOVASCULAR DISEASE 12/19/18 documented as of this encounter
--- OUTSIDE RECORDS SUMMARY | 2024-08-11 23:56 | XMS_ITS | Encounter Summary ---
Author Organization [facility] Address [address] [place] [address]. [place] [address] [place] [address] Care Team Providers Care Information Writer Name Role Phone Moe Arndt [facility] Primary Care Provider [phone] Misti Harris MD Unavailable [phone] Rashawn Almazan MD Unavailable [phone] Ismael Cook Primary Care Provider Chrissy Easton [facility] Primary Care Provider + Encounter Details Date Type Department Care Team (Late st Contact Info) Description 09/17/2020 [employer] Message [facility] [address] [place] [address] [facility] [address] [place] [address] [address] [place] [address] RE: Test Results Social History Tobacco Use Types Packs/Day Years Used Date Smoking Tobacco: Never Smokeless Tobacco: Never Alcohol Use Standard Drinks/Week Comments Yes 0 (1 standard drink = 0.6 oz pur e alcohol) rarely PHQ-2 Answer Date Recorded PHQ-2 Score 0 05/28/2020 Comments No Sex and Gender Information Value Date Recorded Sex Assigned at Not on file Legal Sex Female 4:22 PM CDT Gender Identity Female 08/06/2021 1:53 PM TRAY SERVER Sexual Orientation Straight 08/06/2021 1: 53 PM TRAY SERVER COVID-19 Exposure Response Date Recorded In the last month, have you been in contact with someone who was confirmed or suspected to have Coronavirus / COVID-19? No / Unsure 09/13/2020 7:37 AM TRAY SERVER documented as of this encounter Functional Status [...] AM CDT Cassia Ugalde RN Active * Because of [...] Marshall RN Active documented in this encounter Progress Notes * KRISTEN Mccord - 09/18/2020 9:32 AM CST That is great! SERVER documented in this encounter Plan of Treatment Upcoming Encounters Date Type Department Care Team (Late st Contact Info) Description 2024 10:00 AM TRAY SERVER Office Visit [facility] [address] [place] [address] Keerthi Recinos, EQUIPMENT SERVICE ENGINEER-C [facility]. [facility] [address] [place] [address] documented as of this encounter Visit Diagnoses Not on filedocumented in this encounter Care Teams Information Writer Relationship Specialty Start Date End Date Moe Arndt FNP [address] [facility] [address] [place] [address] PCP - General NURSE PRACTITIONER 06/30/18 04/28/21 Ismael Cook DO [facility]. [facility] [address] [place] [address] PCP - General FAMILY PRACTICE 04/29/21 10/25/23 Chrissy Easton FNP- [address] [place] [address] PCP - General NURSE PRACTITIONER 10/26/23 Misti Harris MD [facility]. [facility] [address] [place] [address] Cognos Lead INTERVENTIONAL CARDIOLOGY 12/24/18 Rashawn Almazan MD [facility]. [address] [place] [address] [place] Seat Pack Inspector CARDIOVASCULAR DISEASE 12/19/18 documented as of this encounter
--- OUTSIDE RECORDS SUMMARY | 2024-08-11 23:56 | XMS_ITS | Encounter Summary ---
Author Organization [facility] - [facility] Address [address] [place] [address]. [place] [address] [place] [address] Care Team Providers Care Sql Server Dba Name Role Phone Misti Harris MD Unavailable [phone] Rashawn Almazan MD Unavailable [phone] Ismael Cook DO Primary Care Provider Chrissy Easton [facility] Primary Care Provider + Encounter Details Date Type Department Care Team (Late st Contact Info) Description 11/26/2021 [employer] Message [address] [address] [place] Provider Appointment Social History Tobacco Use Types Packs/Day Years [...] CDT Gender Identity Female 08/06/2021 1:53 PM MOLD CARPENTER Sexual Orientation Straight 08/06/2021 1: 53 PM MOLD CARPENTER COVID-19 Exposure Response Date Recorded In the last 10 days, have jaylan u been in contact with someone who was confirmed or suspected to have Coronavirus/COVID-19? No / Unsure 11/11/2021 7:40 AM CDT documented as of this encounter Functional [...] st Contact Info) Description 2024 10:00 AM MOLD CARPENTER Office Visit [facility] [address] [place] [address] Keerthi Recinos NP-C [facility]. [facility] [address] [place] [address] documented as of this encounter Visit Diagnoses Not on filedocumented in this encounter Care Teams Sql Server Dba Relationship Specialty Start Date End Date Ismael Cook DO [facility]. [facility] [address] [place] [address] PCP - General FAMILY PRACTICE 04/29/21 10/25/23 Chrissy Easton, [facility] [address] [place] [address] PCP - General NURSE PRACTITIONER 10/26/23 Misti Harris MD [facility]. [facility] [address] [place] [address] Answering Service Agent INTERVENTIONAL CARDIOLOGY 12/24/18 Rashawn Almazan MD [facility]. [facility] [address] [place] [address] Ledy Candy Mixer CARDIOVASCULAR DISEASE 12/19/18 documented as of this encounter
--- OUTSIDE RECORDS SUMMARY | 2024-08-11 23:56 | XMS_ITS | Encounter Summary ---
Author Organization [facility] Address [address] [place] [address]. [place] [address] [place] [address] Care Team Providers Care Pickling Solution Maker Name Role Phone Moe Arndt [facility] Primary Care Provider [phone] Misti Harris MD Unavailable [phone] Rashawn Almazan MD Unavailable [phone] Ismael Cook Primary Care Provider Chrissy Easton [facility] Primary Care Provider + Encounter Details Date Type Department Care Team (Late st Contact Info) Description 01/06/2002 Abstract [facility] Conversion , Generic Conversion, Social History Tobacco Use Types Packs/Day Years Used Date Smoking Tobacco: Never Assessed Comments Unknown Sex and Gender Information Value Date Recorded Sex Assigned at Not on file Legal Sex Female 4:22 PM CDT Gender Identity Female 08/06/2021 1:53 PM ADMINISTRATIVE DIETITIAN Sexual Orientation Straight 08/06/2021 1: 53 PM ADMINISTRATIVE DIETITIAN documented as of this encounter Plan of Treatment Upcoming Encounters Date Type Department Care Team (Late st Contact Info) Description 2024 10:00 AM ADMINISTRATIVE DIETITIAN Office Visit [facility] [address] [place] [address] Keerthi Recinos, INSURANCE SALES ASSISTANT-C [address] [facility] [address] [place] [address] documented as of this encounter Visit Diagnoses Not on filedocumented in this encounter Care Teams Pickling Solution Maker Relationship Specialty Start Date End Date Moe Arndt FNP [address] [facility] [address] [place] [address] PCP - General NURSE PRACTITIONER 06/30/18 04/28/21 Ismael Cook DO [address] [facility] [address] [place] [address] PCP - General FAMILY PRACTICE 04/29/21 10/25/23 Chrissy Easton FNP- [address] [place] [address] PCP - General NURSE PRACTITIONER 10/26/23 Misti [facility] [address] [place] [address] Product Marketing Intern INTERVENTIONAL CARDIOLOGY 12/24/18 Rashawn Almazan MD [address] [facility] [address] [place] [address] [place] Mail Carriers Supervisor CARDIOVASCULAR DISEASE 12/19/18 documented as of this encounter
--- OUTSIDE RECORDS SUMMARY | 2024-08-11 23:56 | XMS_ITS | Clinical Summary ---
Author Organization [facility] System Address [facility] [place] [address] [place] [address] Care Team Providers Care Log Handling Equipment Operator Name Role Phone Misti Harris MD Unavailable [phone] Rashawn Almazan MD Unavailable [phone] Chrissy Easton [facility] Primary Care Provider + Allergies Active Allergy Reactions Criticality Noted Date Comments Lisinopril Cough 05/22/2020 Penicillins Hives 11/03/2017 Propranolol Shortness of Breath High 07/24/2016 Statins Other (see comment) 12/20/2018 Muscle aches Medications Probiotic Product (ADVANCED PROBIOTIC) Cap Take 1 capsule by mouth daily. Active Multiple Vitamins-Minerals (DAILY MULTIVITAMIN) Cap Take by mouth daily. 10/02/19 16 Active calcium-magnesium- zinc 333-133-5 MG TabIndications:thr ee times a week Take by mouth see administration instructions. Active cholecalciferol 125 MCG (5000 UT) TabIndications:3 times a week Take 1 tablet (5,000 Units total) by mouth daily. Indications: 3 times a week 30 tablet 01/05/20 19 Active Potassium 99 MG tabletIndications: 1 tab 3 times a week Take by mouth see administration instructions. Three times a week 01/05/20 19 Active Ascorbic Acid (VITAMIN C) 100 MG tablet Take 1 tablet (100 mg total) by mouth every evening. 90 tablet 01/05/20 Active artificial tears 83-15 % ophthalmic ointmentIndication s:soothe eye drops Place into both eyes as needed. Indications: soothe eye drops 01/05/20 Active fish oil 1000 MG Cap capsule Take 1 capsule (1,000 mg total) by mouth daily. Active pantoprazole EC (PROTONIX) 40 MG tablet Take 1 tablet by mouth once daily 42 tablet 04/06/20 Active nitroglycerin (NITROSTAT) 0.[address] 1 tablet (0.4 mg total) under the tongue every 5 (five) minutes as needed for Chest Pain. 25 tablet 06/16/20 Active acetaminophen (TYLENOL) 500 MG tablet Take 2 tablets (1,000 mg total) by mouth every 6 (six) hours as needed. 07/10/20 Active ibuprofen (MOTRIN) 600 MG tablet Take 1 tablet (600 mg total) by mouth every 6 (six) hours as needed. 07/10/20 Active polyethylene glycol (GLYCOLAX) 17 GM/SCOOP powder Take 17 g by mouth daily. 07/10/20 Active losartan (COZAAR) 25 MG tabletIndications: Essential hypertension Take 1 tablet (25 mg total) by mouth daily. 90 tablet 1 02/08/20 24 Active metoprolol succinate ER (TOPROL-XL) 50 MG 24 hr tabletIndications: Essential hypertension Take 1 tablet (50 mg total) by mouth daily. 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) 12/19/2018 06/21/2021 Encounters Date Type Department Care Team Description 08/08/2024 9:10 AM MATERIAL CUTTER - 08/08/2024 11:59 PM MATERIAL CUTTER Hospital Encounter [facility] Ultrasound [address] [place] [address] Rashawn Almazan MD Arrived Discharge Disposition: Home or Self Care (Routine Discharge) 08/08/2024 Travel 05/30/2024 Telephone [facility] [address] Rashawn Almazan MD Surgical Clearance 05/24/2024 11:20 AM MATERIAL CUTTER Office Visit [facility] [address] [place] [address] Chrissy Easton, PATIENT REGISTRATION CLERK-BC Other (Surgical clearance to be able to have shoulder surgery ) 05/24/2024 Travel from Last 3 Months Immunizations Name Administration Dates Next Due Fluzone High Dose - >Age 65 (Prefilled Syringe) 06/21/2021,05/19/2020 Influenza Adult (Generic) 06/02/2019,06/02/2019 Td 12/18/1998 Family History Medical History Relation Comments Cancer Brother skin Cancer Daughter skin Melanoma Daughter Cancer Father medullar thyroid Skin Cancer Father Thyroid Cancer Father Heart Disease Mother Hyperlipidemia Mother Stroke Mother Cancer Son skin Relation Status Comments Brother Daughter Alive Father Alive Mother Son Social History Tobacco Use Types Packs/Day Years Used Date Smoking Tobacco: Never Smokeless Tobacco: Never Tobacco Cessation:Counseling Given: No Alcohol Use Standard Drinks/Week Comments Yes 0 [...] CDT Gender Identity Female 08/06/2021 1:53 PM MATERIAL CUTTER Sexual Orientation Straight 08/06/2021 1: 53 PM MATERIAL CUTTER Last Filed Vital Signs Vital Sign Reading Time Taken Comments Blood Pressure 111/74 05/24/2024 11:16 AM MATERIAL CUTTER Pulse 62 05/24/2024 11:16 AM MATERIAL CUTTER Temperature 36.3 ??C (97.4 ??F) 05/24/2024 11:[address] Respiratory Rate 18 05/24/2024 11:16 AM MATERIAL CUTTER Oxygen Saturation 96% 05/24/2024 11:16 AM MATERIAL CUTTER Inhaled Oxygen Concentration - - Weight 74 kg (163 lb 3.2 oz) 05/24/2024 11:16 AM MATERIAL CUTTER Height 162.6 cm (5' 4 ) 05/24/2024 11:16 AM MATERIAL CUTTER Body Mass Index 28.01 05/24/2024 11:16 AM MATERIAL CUTTER Plan of Treatment Upcoming Encounters Date Type Department Care Team (Late st Contact Info) Description 2024 10:00 AM MATERIAL CUTTER Office Visit [facility] [address] [place] [address] Keerthi Recinos, ALARM SERVICE TECHNICIAN-C [facility]. [facility] [address] [place] [address] Health Maintenance Due Date Last Done Comments Pneumococcal Vaccine: 65+ Years (1 of 2 - PCV) 1957 Hepatitis C 1969 DTaP, Tdap and Td Vaccines (1 - Tdap) 12/19/1998 12/18/1998 Zoster Vaccines (1 of 2) 2001 RSV Immunization or 60+ Years (1 - Risk 60-74 years 1-dose series) 2011 Annual Medicare Wellness Visit 2016 COVID-19 Vaccine (3 - season) 2024 09/26/2020, 2020 Influenza Adult (#1) 2024 06/21/2021, 05/19/2020, 06/02/2019, Additional history exists Colorectal Cancer Screening Colonoscopy (10 Years) 08/26/2024 08/26/2021, 08/26/2021, 11/24/2017 PHQ-2 (Physician [place]) 05/24/2025 05/24/2024 Mammogram Screening 04/18/2026 04/18/2024, Dexa Scan (General) Completed 08/07/2021 Meningococcal B Vaccine Aged Out No l onger eligible based on patient's age to complete this topic Meningococcal Vaccine Aged Out No dorothea dang eligible based on patient's age to complete this topic RSV Immunizations Under 20 Months Aged Out No longer eligible based on patient's age to complete this topic Procedures Procedure Name Priority Date/Time Associated Diagnosis Comments USE ECHOCARDIOGRAM Routine 08/08/2024 10 :37 AM MATERIAL CUTTER Nonrheumatic mitral valve regurgitation MG SCREENING W ANABELLE SANJIV DIGI Routine 04/18/2024 4:44 PM CDT Encounter for screening mammogram for breast cancer COLONOSCOPY Routine 08/26/2021 9:56 AM MATERIAL CUTTER BONE DENSITY/DEXA Routine 08/07/2021 8:5 7 AM MATERIAL CUTTER Postmenopausal from Last 3 Months or Most Recently Relevant to Health Maintenance Results * USE ECHOCARDIOGRAM (08/08/2024 10:37 AM MATERIAL CUTTER) Anatomical Region Laterality Modality Cardiac Ultrasound 08/08/2024 9:54 AM MATERIAL CUTTER Narrative 08/10/2024 6:32 PM MATERIAL CUTTER ?ANANTH ? OUTREACH Pat.Name: ??Liseth Mckeon ? Pat.ID: ?[id number] ? St.Date: ?? 08/08/2024 ? Refer.MD: ??Outreach, [facility] Imaging Exam Time: 9:54:00 AM ?Study Type:OUTREACH ? Height: ?64.2 in ? Weight: ?163 lb ? BSA: ? 1.8 m2 ?Age: ??1950,73Y ? Sex: ? F ? Sonogrphr: Cr ? Pat. Stat.:Outpatient ? Reason for Study:Mitral regurgitation Procedures: Study performed at [place], [place] and interpreted by [facility]. 2D, M-mode, Doppler, Color Flow [...] - 08/10/2024 ANANTH Baptiste.Name: Liseth Mckeon Oliva.ID: [id number] .Date: 08/08/2024 Refer.MD: Beata, [facility] Imaging Exam Time: 9:54:00 AM Study Type:OUTREACH Height: 64.2 in Weight: 163 lb BSA: 1.8 m2 Age: 2 1950,73Y Sex: F Sonogrphr: Tex Baptiste. Stat.:Outpatient Reason for Study:Mitral regurgitation Procedures: Study performed at [place], [place] and interpreted by [facility]. 2D, M-mode, Doppler, Color Flow [...] RA: The right atrial size is normal. IDXIE: No evidence of pericardial effusion. AO: Aorta [...] M.D. Rashawn Almazan MD ECHO Final Result * MG SCREENING W ANABELLE SANJIV DIGI (04/18/2024 4:44 PM CDT) Anatomical Region Laterality Modality Breast Bilateral Mammography 04/18/2024 4:53 PM CDT Impressions 04/18/2024 4:55 PM CDT IMPRESSION: ??No significant interval change. No mammographic evidence of malignancy. ? RECOMMENDATION: ??Routine ScreeningBilateral OVERALL IMAGING ASSESSMENT: ACR BI-RADS 2 - BENIGN FINDING(S). ? Ordered By: CHRISSY EASTON Interpreted By: Oscar Jameson, 04/18/2024 4:53 PM Narrative 04/18/2024 4:55 PM CDT [facility] [address] [place] [address] EXAMINATION: MG SCREENING W ANABELLE SANJIV DIGI ? INDICATIONS: Screening ?? TECHNIQUE: Digital full field CC and MLO screening mammography bilaterally to include 3-D Tomosynthesis technique. This study was read with the assistance of a computer-aided detection system. HISTORY: No reported breast complaint. No documented personal or first degree family history of breast cancer. No documented prior breast procedure. COMPARISON: Prior examinations available for comparison dating back to 11/12/2006, the most recent of 08/07/2021 and 01/07/2023 ? TISSUE DENSITY: There are scattered areas of fibroglandular density. FINDINGS: Few typically benign round calcifications. No suspicious microcalcification or mass. No developing asymmetry or architectural distortion. No axillary adenopathy. us Chrissy Easton PATIENT REGISTRATION CLERK-BC MAMMO Final Re sult * BONE DENSITY/DEXA (08/07/2021 8:57 AM MATERIAL CUTTER) Anatomical Region Laterality Modality Bone Bone Density 08/07/2021 9:23 AM MATERIAL CUTTER Impressions 08/07/2021 9:34 AM MATERIAL CUTTER IMPRESSION:===== ?? Lumbar spine bone density: Normal Left femoral neck bone density: Osteopenia Left total hip bone density: Osteopenia Right femoral neck bone density: Osteopenia Right total hip bone density: Osteopenia Comments: The femoral neck measurements are considered a more accurate representation the patient's true bone mineralization status due to scoliosis and degenerative sclerotic endplate changes in the lumbar spine. Referred By: ELEONORA FOR[facility]E [facility] Interpreted By: Anish Beal MD, 08/07/2021 9:23 AM Narrative 08/07/2021 9:34 AM MATERIAL CUTTER EXAMINATION: Bone Density Axial EXAM DATE/TIME: 08/07/2021 8:40 AM REASON FOR EXAM: ??Postmenopausal ?? COMPARISON: None FINDINGS: ??DEXA bone densitometry ?The bone mineral density (BMD) was determined by dual-energy x-ray absorptiometry, the results are as follows: AP Lumbar Spine L1 through L4 ?BMD Patient (/SQ): 0.990 ?T-Score (Standard deviations from young adult peak bone density): -0.5 Left femoral neck: ?BMD Patient (/SQCM): 0.595 ?T-Score (Standard deviations from young adult peak bone density): -2.3 Total left femur: ?BMD Patient (/SQ): 0.772 ?T-Score (Standard deviations from young adult peak bone density): -1.4 Right femoral neck: ?BMD Patient (/SQ): 0.715 ?T-Score (Standard deviations from young adult peak bone density): -1.2 Total right femur: ?BMD Patient (/SQ): 0.790 ?T-Score (Standard deviations from young adult peak bone density): -1.2 ===== Procedure Note Anish Beal MD - 08/07/2021 EXAMINATION: Bone Density Axial EXAM DATE/TIME: 08/07/2021 8:40 AM REASON FOR EXAM: Postmenopausal COMPARISON: None FINDINGS: DEXA bone densitometry The bone mineral density (BMD) was determined bydual-energy x-ray absorptiometry, the results are as follows: AP Lumbar Spine L1 through L4 BMD Patient (/SQ): 0.990 T-Score (Standard deviations from young adult peak bonedensity): -0.5 Left femoral neck: BMD Patient (GM/SQCM): 0.595 T-Score (Standard deviations from young adult peak bonedensity): -2.3 Total left femur: BMD Patient (GM/SQCM): 0.772 T-Score (Standard deviations from young adult peak bonedensity): -1.4 Right femoral neck: BMD Patient (GM/SQCM): 0.715 T-Score (Standard deviations from young adult peak bonedensity): -1.2 Total right femur: BMD Patient (GM/SQCM): 0.790 T-Score (Standard deviations from young adult peak bonedensity): -1.2 ===== IMPRESSION:===== Lumbar spine bone density: Normal Left femoral neck bone density: Osteopenia Left total hip bone density: Osteopenia Right femoral neck bone density: Osteopenia Right total hip bone density: Osteopenia Comments: The femoral neck measurements are considered a more accuraterepresentation the patient's true bone mineralization status due toscoliosis and degenerative sclerotic endplate changes in the lumbar spine. Referred By: ELEONORA COOK Interpreted By: Anish Beal MD, 08/07/2021 9:23 AM us Eleonora Cook DO DEXA Final R esult * COLONOSCOPY (11/24/2017 12:00 AM CDT) 11/24/2017 us Documents Scanned SCANNING Final Result [facility] from Last 3 Months or Most Recently Relevant to Health Maintenance Insurance MEDICARE [facility] MEDICARE [place] [employer] Advance Directives Documents on File Type Date Recorded Patient Supervisor [employer] Expl anation Advance Directives and Living Will 12/19/2018 3:37 PM Signed 12-19-18 [facility] r Health Care * Full Code (Latest Code Status on File) Date Activated Date Inactivated Comments 12/20/2018 1:33 PM 12/21/2018 3:28 PM * Full Code Date Activated Date Inactivated Comments 12/19/2018 2:27 AM 12/20/2018 1:33 PM Care Teams Log Handling Equipment Operator Relationship Specialty Start Date End Date Chrissy Easton, PATIENT REGISTRATION CLERK- [address] [place] [address] PCP - General NURSE PRACTITIONER 10/26/23 Misti Harris MD Three [facility]. [facility] [address] [place] [address] Network Technology Instructor INTERVENTIONAL CARDIOLOGY 12/24/18 Rashawn Almazan MD [facility]. [facility] [address] [place] [address] [employer] Sales Representative CARDIOVASCULAR DISEASE 12/19/18
--- OUTSIDE RECORDS SUMMARY | 2024-08-11 23:56 | XMS_ITS | Encounter Summary ---
Author Organization [facility] System Address [address] [place] [address]. [place] [address] [place] [address] Care Team Providers Care Candy Decorator Name Role Phone Moe Arndt [facility] Primary Care Provider [phone] Misti Harris MD Unavailable [phone] Rashawn Almazan MD Unavailable [phone] Ismael Cook DO Primary Care Provider Chrissy Easton [facility] Primary Care Provider + Encounter Details Date Type Department Care Team (Late st Contact Info) Description 12/22/2018 Hospital Follow-up Call [facility] Telemetry Unit [address] [place] [address] Mayelin Mcdonald Social History Tobacco Use Types Packs/Day Years Used Date Smoking Tobacco: Never Smokeless Tobacco: Never Alcohol Use Standard Drinks/Week Comments Yes 0 (1 standard drink = 0.6 oz pur e alcohol) rarely Comments No Sex and Gender Information Value Date Recorded Sex Assigned at Not on file Legal Sex Female 4:22 PM CDT Gender Identity Female 08/06/2021 1:53 PM ULTRA SOUND TECHNICIAN Sexual Orientation Straight 08/06/2021 1: 53 PM ULTRA SOUND TECHNICIAN documented as of this encounter Functional Status [...] st Contact Info) Description 2024 10:00 AM ULTRA SOUND TECHNICIAN Office Visit [facility] [address] [place] [address] Keerthi Recinos, MATHEMATICS ACADEMIC CHAIR-C [facility]. [facility] [address] [place], [place] [address] documented as of this encounter Visit Diagnoses Not on filedocumented in this encounter Care Teams Candy Decorator Relationship Specialty Start Date End Date Moe Arndt FNP [address] [facility] [address] [place] [address] PCP - General NURSE PRACTITIONER 06/30/18 04/28/21 Ismael Cook DO [facility] [address] [place] [address] PCP - General FAMILY PRACTICE 04/29/21 10/25/23 Chrissy Easton, KILN TESTER- [address] [place] [address] PCP - General NURSE PRACTITIONER 10/26/23 Misti Harris MD [address] [place] [address] Shift Production Associate INTERVENTIONAL CARDIOLOGY 12/24/18 Rashawn Almazan MD [address] [facility] [address] [place] [address] [place] Enterprise Software Developer CARDIOVASCULAR DISEASE 12/19/18 documented as of this encounter
--- OUTSIDE RECORDS SUMMARY | 2024-08-11 23:56 | XMS_ITS | Encounter Summary ---
Author Organization [facility] Address [address] [place] [address]. [place] [address] [place] [address] Care Team Providers Care Induction Coordination Power Engineer Name Role Phone Misti Harris MD Unavailable Rashawn Almazan MD Unavailable [phone] Ismael Cook DO Primary Care Provider Chrissy Easton [facility] Primary Care Provider + Encounter Details Date Type Department Care Team (Late st Contact Info) Description 12/12/2021 [employer] Message Enc [facility] [address] [address] [facility] Provider Test results Social History Tobacco Use Types Packs/Day Years [...] CDT Gender Identity Female 08/06/2021 1:53 PM RESIDENTIAL DIRECTOR Sexual Orientation Straight 08/06/2021 1: 53 PM RESIDENTIAL DIRECTOR COVID-19 Exposure Response Date Recorded In the last 10 days, have yo u been in contact with someone who was confirmed or suspected to have Coronavirus/COVID-19? No / Unsure 12/10/2021 4:36 PM CDT documented as of this encounter [...] 2:36 AM CDT Cassia Ugalde RN Active documented as of this encounter Mental Status * Because of a physical, mental, or emotional condition, do you have serious difficulty concentrating, remembering, or making decisions? Answer Entry Date Author Status No 12/19/2018 2:36 AM CDT Cassia Ugalde R N Active documented in this encounter Plan of Treatment Upcoming Encounters Date Type Department Care Team (Late st Contact Info) Description 2024 10:00 AM RESIDENTIAL DIRECTOR Office Visit [facility] [address] [place] [address] Keerthi Recinos, UNMANNED EQUIPMENT OPERATOR-C [facility]. [facility] [address] [place] [address] documented as of this encounter Visit Diagnoses Not on filedocumented in this encounter Care Teams Induction Coordination Power Engineer Relationship Specialty Start Date End Date Janetkamari Ismael DO [place] [address] [place] [address] PCP - General FAMILY PRACTICE 04/29/21 10/25/23 Chrissy Easton, [facility] [address] [place] [address] PCP - General NURSE PRACTITIONER 10/26/23 Misti [facility] MD [facility] [address] [place], [place] [address] Forestry Technician INTERVENTIONAL CARDIOLOGY 12/24/18 Rashawn Almazan MD [address] [place], [place] [address] [employer] Lasting Machine Operator Bed CARDIOVASCULAR DISEASE 12/19/18 documented as of this encounter
--- OUTSIDE RECORDS SUMMARY | 2024-08-11 23:56 | XMS_ITS | Encounter Summary ---
Author Organization [facility] Address [address] [place] [address]. [place], [place] [address] [place] [address] Care Team Providers Care Supervisor Fishing Name Role Phone Moe Arndt [facility] Primary Care Provider [phone] Misti Harris MD Unavailable [phone] Rashawn Almazan MD Unavailable Ismael Cook Primary Care Provider Chrissy Easton [facility] Primary Care Provider + Encounter Details Date Type Department Care Team (Late st Contact Info) Description 06/02/2016 Abstract [facility] Conversion Haja Jackson MD [address] [facility] [id number] [place] [address] Social History Tobacco Use Types Packs/Day Years Used Date Smoking Tobacco: Never Assessed Comments Unknown Sex and Gender Information Value Date Recorded Sex Assigned at Not on file Legal Sex Female 4:22 PM CDT Gender Identity Female 08/06/2021 1:53 PM DATA ENTRY ANALYST Sexual Orientation Straight 08/06/2021 1: 53 PM DATA ENTRY ANALYST documented as of this encounter Miscellaneous Notes * Letter - Haja Jackson MD - 06/02/2016 12:00 AM CST Jun 02, 2016 Liseth Mckeon [address] [place] [address] Dear Liseth Mckeon, Thank you for choosing [facility] for your health care needs. We appreciate the opportunity to help you maintain your well being. You recently attended the health fair. Your results came back normal or at goal. Please remember to follow up as discussed at your last appointment. If you have any questions please feel free to call the office at [phone], Option #3 or Option #1 to make an appointment to discuss these results. Respectfully Yours, Electronically Signed by: Haja Jackson MD Cc: Patients Medical Record ENTRY ANALYST documented in this encounter Plan of Treatment Upcoming Encounters Date Type Department Care Team (Late st Contact Info) Description 2024 10:00 AM DATA ENTRY ANALYST Office Visit [facility] [address] [place] [phone] Keerthi Recinos, LOG GETTER-C [facility]. [facility] [address] [place] [address] documented as of this encounter Visit Diagnoses Not on filedocumented in this encounter Care Teams Supervisor Fishing Relationship Specialty Start Date End Date Moe Arndt FNP [address] [facility] [address] [place] [address] PCP - General NURSE PRACTITIONER 06/30/18 04/28/21 Ismael Cook DO [facility]. [address] [place] [address] PCP - General FAMILY PRACTICE 04/29/21 10/25/23 Chrissy Easton FNP- [address] [place] [address] PCP - General NURSE PRACTITIONER 10/26/23 Misti Harris MD Three [facility]. [facility] [address] [place], [place] [address] Weblogic Administrator INTERVENTIONAL CARDIOLOGY 12/24/18 Rashawn Almazan MD Three [facility]. [facility] [address] [place] [address] [place] Reserve Officer CARDIOVASCULAR DISEASE 12/19/18 documented as of this encounter
--- OUTSIDE RECORDS SUMMARY | 2024-08-11 23:56 | XMS_ITS | Clinical Summary ---
Author Organization [facility] Address [address] [place] [address] Care Team Providers Care Diesel Dinkey Engineer Name Role Phone JoeyIsmael Unavailable Ismael Cook DO Primary Care Provider [phone] Allergies Active Allergy Reactions Criticality Noted Date Comments Lisinopril Cough Low 05/22/2020 Penicillins Hives Medium 07/24/2016 Propranolol Shortness of breath High 06/09/2022 Nonwogy-Zfk-Dlr Reductase Inhibitors Other (See comments) Low 12/20/2018 Muscle aches Medications amLODIPine (NORVASC) 10 mg tabletIndicatio ns:hypertension Take 1 tablet (10 mg total) by mouth warehouse puller before breakfast 1 Active clopidogreL (PLAVIX) 75 mg tabletIndicatio ns:myocardial infarction prevention,s/p stent 2019 Take 1 tablet (75 mg total) by mouth nightly 1 Active losartan (COZAAR) 25 mg tabletIndicatio ns:hypertension Take 1 tablet (25 mg total) by mouth warehouse puller before breakfast 1 Active metoprolol XL (TOPROL-XL) 50 mg extended release tabletIndicatio ns:hypertension 1 tablet (50 mg total) nightly 1 Active thyroid (ARMOUR THYROID) 90 mg tabletIndicatio ns:hypothyroidi sm Take 90 mg by mouth warehouse puller before breakfast 1 Active rosuvastatin (CRESTOR) 5 mg tabletIndicatio ns:hyperlipidem ia Take 1 tablet (5 mg total) by mouth nightly 1 Active cholecalciferol (VITAMIN D-3) 3,000 unit tabletIndicatio ns:supplement Take 1 tablet (3,000 Units total) by mouth warehouse puller before breakfast Active potassium 99 mg tabletIndicatio ns:hypokalemia prevention Take 1 tablet (99 mg total) by mouth nightly 9 Active multivitamin tabletIndicatio ns:Vitamin Deficiency Prevention Take 1 tablet by mouth warehouse puller before breakfast Active calcium-magnesi um-zinc 333-133-5 mg tabletIndicatio ns:RLS Take 1 tablet by mouth nightly Active coenzyme Q10 10 mg capsuleIndicati ons:supplement Take 1 capsule (10 mg total) by mouth nightly Active UNABLE TO FINDIndications :supplement Take 2 each by mouth warehouse puller before breakfast Med Name: CitraNox Active ascorbic acid (VITAMIN C) 1,000 mg tabletIndicatio ns:supplement Take 1 tablet (1,000 mg total) by mouth 2 (two) times a day Active artificial tears,hypromell ose, 0.3 % drops Administer into affected eye(s) Active omega-3 fatty acids-fish oil 300-1,000 mg capsuleIndicati ons:hypertrigly ceridemia Take 2 capsules (2 g total) by mouth warehouse puller before breakfast Active nitroglycerin (NITROSTAT) 0.4 mg [...] (06/09/2022): Added automatically from request for surgery [id number] Diverticulosis 08/26/2021 Esophageal stricture 08/26/2021 Gastroduodenitis 08/26/2021 Hiatal hernia 08/26/2021 Internal hemorrhoids 08/26/2021 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 Mixed hyperlipidemia 03/01/2021 Primary hypertension 03/01/2021 Coronary artery disease invo lving [place] coronary artery of [place] heart 03/01/2021 Chronic gastritis 12/01/2017 Hypothyroidism 10/02/2015 Osteoarthrosis 10/02/2015 Osteoarthritis of cervical spine 10/01/2009 Encounters Date Type Department Care Team Description 08/05/2024 Telephone [facility] Obstetrics and Gynecology [address] [facility] 13th [place] [address] Sera Chase, RN 06/01/2024 Telephone [facility] Obstetrics and Gynecology [facility] [facility] th [place] [address] Sera Chase, RN Scheduling Appointments 05/30/2024 Telephone [facility] Obstetrics and Gynecology [address] [facility] Medicine th [place] [address] Sera Chase, RN from Last 3 Months Immunizations Name Administration Dates Next Due Influenza, Quadrivalent, Hig h Dose, Preservative Free, Intrr 05/19/2020 Influenza, Quadrivalent, Spl it, Preservative Free, Intramuscular 06/02/2019 Influenza, Unspecified 06/21/2021 Moderna SARS-CoV-2 Monovalent Vaccination (12+ Y RS) 09/26/2020,2020 Td, adsorbed 12/18/1998 Surgical History Surgery Date Site/Laterality Comments SHOULDER SURGERY CARDIAC STENT PLACEMENT VITRECTOMY THYROIDECTOMY PARTIAL HYSTERECTOMY CHOLECYSTECTOMY Medical History Medical History Date Comments Coronary artery disease Hyperlipidemia Hypothyroidism Hypertension Arthritis Family History Medical History Relation Name Comments No Known Problems Brother 1 Eye cancer Brother 2 Hyperlipidemia Brother 2 Hypertension Brother 2 Leukemia Brother 3 Arthritis Brother 4 No Known Problems Brother 5 Car Accident Child 1 Hyperlipidemia Child 2 Hypertension Child 2 Skin cancer Child 2 Hypertension Child 3 Hypothyroidism Child 4 Skin cancer Child 4 Breast cancer Cousin Paternal Ovarian cancer Cousin Paternal Arthritis Father Bladder Cancer Father Thyroid cancer Father Breast cancer Father's Sister Heart disease Mother Hypertension Mother Stroke Mother Anesthesia problems Neg Hx Relation Name Status Comments Brother 1 Alive Brother 2 Alive Brother 3 Brother 4 Alive Brother 5 Alive Child 1 Child 2 Alive Child 3 Alive Child 4 Alive Cousin Paternal Father Alive Father's Sister Mother Social History Tobacco Use Types Packs/Day [...] on file Legal Sex Female 8:12 AM STEWARDESSES TEACHER Gender Identity Not on file Sexual Orientation Not on file Obstetrics History Para Term AB IAB SAB Ectopic Multiple Livin g Live Births 4 4 4 4 4 Date Outcome GA Total Labor Labor/2nd/3rd Weight Sex Type Anes PTL Addie A1 A5 Name Clin Term Term Term Term Last Filed Vital Signs Vital Sign Reading Time Taken Comments Blood Pressure 142/82 08/17/2023 11:23 AM STEWARDESSES TEACHER Pulse 74 08/17/2023 11:23 AM STEWARDESSES TEACHER Temperature 36.8 ??C (98.2 ??F) 08/17/2023 11:[address] Respiratory Rate 16 08/17/2023 11:23 AM STEWARDESSES TEACHER Oxygen Saturation 97% 08/17/2023 11:23 AM STEWARDESSES TEACHER Inhaled Oxygen Concentration - - Weight 75.8 kg (167 lb 1.6 oz) 08/17/2023 11:23 AM STEWARDESSES TEACHER Height 160 cm (5' 2.99 ) 08/17/2023 11:23 AM STEWARDESSES TEACHER Body Mass Index 29.61 08/17/2023 11:23 AM STEWARDESSES TEACHER Plan of Treatment Health Maintenance Due Date Last Done Comments Colon Cancer Screening-Colonoscopy 1950 Depression Screening 1950 Hepatitis C Screening 1951 Hepatitis B Screening 1969 DTaP/Tdap/Td Vaccine (1 - Tdap) 12/19/1998 9 Zoster Vaccine (1 of 2) 2001 Pneumococcal vaccine 65+ (1 of 1 - PCV) 2016 Well Visit 65+ 2016 Fall Risk Assessment 07/10/2023 07/10/2022 Osteoporosis Screening-Bone Density Scan 08/07/2023 08/07/2021 Covid-19 Vaccine (3 - 2023-2 5 season) 2024 09/26/2020, 2020 Influenza Vaccine (#1) 2024 , 05/19/2020, 06/02/2019 Breast Cancer Screening-Mammogram 04/18/2025 04/18/2024, 04/18/2024, 08/07/2021, Additional history exists Insurance MEDICARE [facility] MEDICARE [place] MEDICARE [place] [address] Care Teams Diesel Dinkey Engineer Relationship Specialty Start Date End Date Ismael Cook DO [address] [place] [address] PCP - General Family Medicine 06/09/22 Ismael Cook DO [address] [place] [address] Family Medicine 05/22/22
--- OUTSIDE RECORDS SUMMARY | 2024-08-11 23:56 | XMS_ITS | Encounter Summary ---
Author Organization [facility] Address [address] [place] [address]. [place] [address] [place] [address] Care Team Providers Care Carpenter Supervisor Wooden Ship Name Role Phone Misti Harris MD Unavailable [phone] Rashawn Almazan MD Unavailable [phone] Ismael Cook DO Primary Care Provider Chrissy Easton [facility] Primary Care Provider + Encounter Details Date Type Department Care Team (Late st Contact Info) Description 12/12/2021 Postify Message Enc [facility] [address] [facility] Provider Carotid Ultrasound Social History Tobacco Use Types Packs/Day Years [...] CDT Gender Identity Female 08/06/2021 1:53 PM SPACE PLANNER Sexual Orientation Straight 08/06/2021 1: 53 PM SPACE PLANNER COVID-19 Exposure Response Date Recorded In the [...] st Contact Info) Description 2024 10:00 AM SPACE PLANNER Office Visit [facility] [address] [place] [address] Keerthi Recinos, MOLD LOFT WORKER-C [facility]. [facility] [address] [place] [address] documented as of this encounter Visit Diagnoses Not on filedocumented in this encounter Care Teams Carpenter Supervisor Wooden Ship Relationship Specialty Start Date End Date Ismael Cook DO [address] [place] [address] PCP - General FAMILY PRACTICE 04/29/21 10/25/23 Chrissy Easton, STORAGE GARAGE MANAGER- [address] [place] [address] PCP - General NURSE PRACTITIONER 10/26/23 Mist[facility] [address] [place] [address] Metal Can Inspector INTERVENTIONAL CARDIOLOGY 12/24/18 Rashawn Almazan MD [address] [place], [place] [address] [place] Musical String Maker CARDIOVASCULAR DISEASE 12/19/18 documented as of this encounter
== END 2024-08-10 11:20 | disposition home or self-care (01) ==
LOC: ANHSURGERY 11:27
PROVIDERS: Visit Provider Orthopaedic Surgery
DX: Z01.812 Encounter for preprocedural laboratory examination (principal); M19.011 Primary osteoarthritis, right shoulder; I10 Essential (primary) hypertension
CPT/HCPCS: 36415; 85025; 87641; 93005

== ENCOUNTER 2024-09-05 00:21 | Day surgery (SDC) | payer MEDICARE, OTHER, SELFPAY ==
--- NOTE | 2024-08-10 11:44 | PC.NURSE ---
Report to the Outpatient Waiting Room, entrance under the green pavilion located off [facility], at time _10 AM on date __09/05/24 . Planned Procedure Time: _1200 NOON .? Time changes happen often and if your time is changed the preop area will call you the afternoon before. - You and your visitor will be asked to self-screen and do not enter if you have any COVID symptoms. Please call surgeon if you need to reschedule. - A mask is optional within the hospital at this time. Patients may have clear liquids (water, carbonated beverages, clear teas, apple juice) until 3 hours prior to surgery( 9AM) with a maximum of 20 ounces. - No food from midnight until time of surgery and no smoking. This includes no chewing gum, candy or mints. Take only the following medications with a SIP of water on the morning of surgery: __AMLODIPINE,THYROID DO NOT STOP ANY OF YOUR OTHER PRESCRIPTION MEDICATIONS PRIOR TO SURGERY EXCEPT THE FOLLOWING Medications to discontinue per physician _PT STATES __HOLD ALL VITAMINS AND SUPPLEMENTS 7 DAYS PRE OP_PER DR ALVAREZ. AND HOLD PLAVIX ___7 DAYS PRE OP___PER DR ALVAREZ Date to take last dose____08/28/24 Please no make-up, nail burkinan, hairspray, perfume, deodorant, or body powder the day of surgery.? No jewelry (including any body piercings) or valuables the day of surgery, leave them at home.? Please take a shower or bath the night before, or the morning of, surgery with an antibacterial soap.? Wear comfortable, loose fitting clothing.? Children are encouraged to wear pajamas. - Jewelry must be removed prior to entering the operating room.? Rings and piercings that are not removed may be cut off. - The hospital will not accept responsibility for valuables.? - Please leave all valuables, including medications, at home the day of surgery. If you are going home after surgery, a licensed pile driver must drive you home.? - NO public transportation without another adult if you receive anesthesia. - We recommend that an adult stay with you for 24 hours following discharge. - We also recommend that you do not drive, make important decision, drink alcoholic beverages, or take any drugs that were not prescribed by your health care provider for at least 24 hours after your discharge time. Follow any additional instructions given to you from your surgeon. VERBAL AND WRITTEN instructions given to __PATIENT and asked if any additional questions and then verbalized understanding. Patient advised to call surgeon office or pre surgery nurse liaison [phone] if any additional questions.
[2024-08-10 11:55] VITALS: BMI 30.6
[2024-08-10 12:35] VITALS: BP 134/72; PULSE 61; RESP 18; TEMP 36.6; O2SAT 99
[2024-09-05] VITALS (14 sets, daily range): BP systolic 96–163; BP diastolic 52–108; PULSE 60–79; RESP 14–20; TEMP 36.3–37.4; O2SAT 93–98; BMI 30.1
--- NOTE | ~2024-09-05 | XR_ITS ---
EXAMINATION: XR shoulder RT min 2V DATE: 09/05/2024 14:47 INDICATION: Status post right total shoulder arthroplasty. TECHNIQUE: AP and transscapular Y views of the right shoulder were obtained. COMPARISON: CT dated 05/26/2024 FINDINGS: Reverse right total shoulder arthroplasty which appears well seated in near-anatomic alignment. No fr acture. Severe right acromioclavicular osteoarthritis. Expected soft tissue gas at the operative bed. Severe cervical spondylosis. IMPRESSION: Expected appearance post right total shoulder arthroplasty. See procedure note for further detail. Reviewed, dictated and finalized at location A. [employer]
--- OUTSIDE RECORDS SUMMARY | 2024-09-05 00:25 | XMS_ITS | Encounter Summary ---
Author Organization [facility] Address [facility] [place] [address] Care Team Providers Care Feeder Switchboard Operator Name Role Phone Moe Arndt [facility] Primary Care Provider [phone] Misti Harris MD Unavailable [phone] Rashawn Almazan MD Unavailable [phone] Ismael Cook Primary Care Provider Chrissy Easton [facility] Primary Care Provider + Encounter Details Date Type Department Care Team (Late st Contact Info) Description 06/02/2016 Abstract [facility] Conversion Haja Jackson MD [address] [place] [address] Social History Tobacco Use Types Packs/Day Years Used Date Smoking Tobacco: Never Assessed Comments Unknown Sex and Gender Information Value Date Recorded Sex Assigned at Female 2024 9:46 AM WHARF TENDER HEAD Legal Sex Female 4:22 PM CDT Gender Identity Female 08/06/2021 1:53 PM WHARF TENDER HEAD Sexual Orientation Straight 08/06/2021 1: 53 PM WHARF TENDER HEAD documented as of this encounter Miscellaneous Notes * Letter - Haja Jackson MD - 06/02/2016 12:00 AM CST Jun 02, 2016 Liseth Mckeon [address] [place] [address] Dear Liseth Mckeon, Thank you for choosing [facility] for your health care needs. We appreciate the opportunity to help you maintain your well being. You recently attended the health fair. Your results came back normal or at goal. Please remember to follow up as discussed at your last appointment. If you have any questions please feel free to call the office at [phone], Option #3 or Option #1 to make an appointment to discuss these results. Respectfully Yours, Electronically Signed by: Haja Jackson MD Cc: Patients Medical Record F TENDER HEAD documented in this encounter Plan of Treatment Upcoming Encounters Date Type Department Care Team (Late st Contact Info) Description 04/03/2025 10:15 AM CDT Office Visit [facility] [address] [place] [address] [facility]. [address] [address] documented as of this encounter Visit Diagnoses Not on filedocumented in this encounter Care Teams Feeder Switchboard Operator Relationship Specialty Start Date End Date Moe Arndt FNP [address] [facility] [address] [place] [address] PCP - General NURSE PRACTITIONER 06/30/18 04/28/[address] [facility]. [facility] [address] [place] [address] PCP - General FAMILY PRACTICE 04/29/21 10/25/23 Chrissy Easton, CORPORATE PLANNER- [address] [place] [address] PCP - General NURSE PRACTITIONER 10/26/23 Misti Harris MD Three [facility]. [facility] [address] [place] [address] Ships Or Barges Loader INTERVENTIONAL CARDIOLOGY 12/24/18 Rashawn Almazan MD Three [facility]. [facility] [address] [place] [address] Juda Carboy Filler CARDIOVASCULAR DISEASE 12/19/18 documented as of this encounter
--- OUTSIDE RECORDS SUMMARY | 2024-09-05 00:25 | XMS_ITS | Encounter Summary ---
Author Organization [facility] Address [address] [place] [address] Care Team Providers Care Granite Polisher Name Role Phone Moe Arndt [facility] Primary Care Provider [phone] Misti Harris MD Unavailable [phone] Rashawn Almazan MD Unavailable [phone] Ismael Cook DO Primary Care Provider Chrissy Easton [facility] Primary Care Provider + Encounter Details Date Type Department Care Team (Late st Contact Info) Description 08/01/2019 Community Orders [facility] EPICCARE LINK Henrietta Montgomery, SALES INSPECTOR [address] [place] [address] Social History Tobacco Use Types Packs/Day Years Used Date Smoking Tobacco: Never Smokeless Tobacco: Never Alcohol Use Standard Drinks/Week Comments Yes 0 (1 standard drink = 0.6 oz pur e alcohol) rarely Comments No Sex and Gender Information Value Date Recorded Sex Assigned at Female 2024 9:46 AM PALLIATIVE CARE NURSE Legal Sex Female 4:22 PM CDT Gender Identity Female 08/06/2021 1:53 PM PALLIATIVE CARE NURSE Sexual Orientation Straight 08/06/2021 1: 53 PM PALLIATIVE CARE NURSE documented as of this encounter Functional Status [...] Description 04/03/2025 10:15 AM CDT Office Visit [facility] [address] [place] [address] Rashawn Almazan MD [address] [place] [place] [address] documented as of this encounter Visit Diagnoses Not on filedocumented in this encounter Care Teams Granite Polisher Relationship Specialty Start Date End Date Moe Arndt FNP [address] [facility] [address] [place] [address] PCP - General NURSE PRACTITIONER 06/30/18 04/28/21 Ismael Cook DO [facility] [address] [place] [address] PCP - General FAMILY PRACTICE 04/29/21 10/25/23 Chrissy Easotn, BILLET EXAMINER- [address] [place] [address] PCP - General NURSE PRACTITIONER 10/26/23 Misti Harris MD Three [facility] [address] [place] [address] Bar And Filler Assembler INTERVENTIONAL CARDIOLOGY 12/24/18 Rashawn Almazan MD Three [facility] [address] [place] [address] [place] Microbiology Lab Manager CARDIOVASCULAR DISEASE 12/19/18 documented as of this encounter
--- OUTSIDE RECORDS SUMMARY | 2024-09-05 00:25 | XMS_ITS | Encounter Summary ---
Author Organization [facility] Address [address] [place] [address] Care Team Providers Care Family Nurse Practitioner Name Role Phone Moe Arndt [facility] Primary Care Provider [phone] Misti Harris MD Unavailable [phone] Rashawn Almazan MD Unavailable [phone] Ismael Cook Primary Care Provider Chrissy Easton [facility] Primary Care Provider + Encounter Details Date Type Department Care Team (Late st Contact Info) Description 12/12/2014 Abstract [facility] CONVERSION [address] [place] [address] , Generic ConversionMD Social History Tobacco Use Types Packs/Day Years Used Date Smoking Tobacco: Never Assessed Comments Unknown Sex and Gender Information Value Date Recorded Sex Assigned at Female 2024 9:46 AM GENERATION MECHANIC HELPER Legal Sex Female 4:22 PM CDT Gender Identity Female 08/06/2021 1:53 PM GENERATION MECHANIC HELPER Sexual Orientation Straight 08/06/2021 1: 53 PM GENERATION MECHANIC HELPER documented as of this encounter Plan of Treatment Upcoming Encounters Date Type Department Care Team (Late Contact Info) Description 04/03/2025 10:15 AM CDT Office Visit [facility] [address] [place] [address] Rashawn Almazan MD [address] [place] [address] documented as of this encounter Visit Diagnoses Not on filedocumented in this encounter Care Teams Family Nurse Practitioner Relationship Specialty Start Date End Date Moe Arndt FNP [address] [facility] [address] [place] [address] PCP - General NURSE PRACTITIONER 06/30/18 04/28/21 Ismael [facility] DO [facility] [address] [place] [address] PCP - General FAMILY PRACTICE 04/29/21 10/25/23 Chrissy Easton FNP- [address] [place] [address] PCP - General NURSE PRACTITIONER 10/26/23 Misti Harris MD [facility] [address] [facility] [address] [place] [address] Corrections Cadet INTERVENTIONAL CARDIOLOGY 12/24/18 Rashawn Almazan MD [address] [place] [address] [place] Chemical Treatment Operator CARDIOVASCULAR DISEASE 12/19/18 documented as of this encounter
--- OUTSIDE RECORDS SUMMARY | 2024-09-05 00:25 | XMS_ITS | Encounter Summary ---
Author Organization [facility] Address [address] [place] [address] Care Team Providers Care Group Sales Coordinator Name Role Phone Moe Arndt [facility] Primary Care Provider [phone] Misti Harris MD Unavailable [phone] Rashawn Almazan MD Unavailable Ismael Cook DO Primary Care Provider Chrissy Easton [facility] Primary Care Provider + Encounter Details Date Type Department Care Team (Late st Contact Info) Description 10/23/2017 Abstract [facility] Conversion Moe Arndt FNP [address] [facility] [address] [place] [address] Social History Tobacco Use Types Packs/Day Years Used Date Smoking Tobacco: Never Assessed Comments Unknown Sex and Gender Information Value Date Recorded Sex Assigned at Female 2024 9:46 AM REFINERY OPERATOR CRUDE UNIT Legal Sex Female 4:22 PM CDT Gender Identity Female 08/06/2021 1:53 PM REFINERY OPERATOR CRUDE UNIT Sexual Orientation Straight 08/06/2021 1: 53 PM REFINERY OPERATOR CRUDE UNIT documented as of this encounter Miscellaneous Notes * Letter - KRISTEN Mccord - 10/23/2017 12:00 AM CDT Oct 23, 2017 Liseth Mckeon is released to go back to work. Patient should avoid prolonged standing, jumping, or quickly rotating on left foot. Thank you, Moe Arndt APN NERY OPERATOR CRUDE UNIT documented in this encounter Plan of Treatment Upcoming Encounters Date Type Department Care Team (Late st Contact Info) Description 04/03/2025 10:15 AM CDT Office Visit [facility] [address] [place] [address] Rashawn Almazan MD [facility]. [facility] [address] [place] [address] documented as of this encounter Visit Diagnoses Not on filedocumented in this encounter Care Teams Group Sales Coordinator Relationship Specialty Start Date End Date Moe Arndt FNP [address] [facility] [address] [place] [address] PCP - General NURSE PRACTITIONER 06/30/18 04/28/21 Ismael Cook DO [facility] [address] [place] [address] PCP - General FAMILY PRACTICE 04/29/21 10/25/23 Chrissy Easton FNP- [address] [place] [address] PCP - General NURSE PRACTITIONER 10/26/23 Misti Harris MD [facility]. [address] [place], [place] [address] Assistant Director Of Residence Life INTERVENTIONAL CARDIOLOGY 12/24/18 Rashawn Almazan MD Three [facility]. [address] [address] [place] Electronic Maintenance Supervisor CARDIOVASCULAR DISEASE 12/19/18 documented as of this encounter
--- OUTSIDE RECORDS SUMMARY | 2024-09-05 00:25 | XMS_ITS | Clinical Summary ---
Author Organization [facility] Address [address] [place] [address] Care Team Providers Care Sprinkler Helper Name Role Phone Unknown, Provider Primary Care Provider Unavaila ble Source Comments [facility],non-owned Affiliates and Associated Physician Practices is amultiple site organization consisting of ambulatory clinics and hospital sitesin [place], [place] and [place]. This disclosure is being madepursuant to the Care Everywhere program and may not contain all information available regarding this patient. Last updated 18.[facility] Allergies Active Allergy Reactions Criticality Noted Date [...] PO) Take by mouth once daily Active [id number] C PO Active Maroa-3 Fatty Acids (FISH OIL) 1000 MG capsule Take 1,000 mg by mouth once daily Reported on 08/08/2016 Active Maroa 3 340 MG capsule Take 1 Cap [...] Comments Blood Pressure 146/97 08/08/2016 11:03 AM SPORTS PHYSIOLOGIST Pulse 72 08/08/2016 11:03 AM SPORTS PHYSIOLOGIST Temperature - - Respiratory Rate - - Oxygen Saturation - - Inhaled Oxygen Concentration - - Weight 79.4 kg (175 lb) 08/08/2016 11:03 AM SPORTS PHYSIOLOGIST Height 162.6 cm (5' 4 ) 08/08/2016 11:03 AM SPORTS PHYSIOLOGIST Body Mass Index 30.04 08/08/2016 11:03 AM SPORTS PHYSIOLOGIST Plan of Treatment Health Maintenance Due Date [...] age to complete this topic Care Teams Sprinkler Helper Relationship Specialty Start Date End Date Unknown, Provider PCP - General 08/08/16
--- OUTSIDE RECORDS SUMMARY | 2024-09-05 00:25 | XMS_ITS | Patient Health Summary ---
Author Organization [facility] Address [address] [place] [address] Care Team Providers Care Founder / Ceo Name Role Phone Unknown, Provider Primary Care Provider Unavaila ble Note from [facility],non-owned Affiliates and Associated Physician Practices is amultiple site organization consisting of ambulatory clinics and hospital sitesin [place], [place], [place] and [place]. This disclosure is being madepursuant to the Care Everywhere program and may not contain all information available regarding this patient. Last updated 18.[facility] Allergies * Propranolol Hcl Cr * Penicillins [...] PO) Take by mouth once daily * [id number] PO * Cort[place]-3 Fatty Acids (FISH OIL) 1000 MG capsule Take 1,000 mg by mouth once daily Reported on 08/08/2016 * [place] 3 340 MG capsule Take 1 Cap [...] Comments Blood Pressure 146/97 08/08/2016 11:03 AM TENNIS PLAYER Pulse 72 08/08/2016 11:03 AM TENNIS PLAYER Temperature - - Respiratory Rate - - Oxygen Saturation - - Inhaled Oxygen Concentration - - Weight 79.4 kg (175 lb) 08/08/2016 11:03 AM TENNIS PLAYER Height 162.6 cm (5' 4 ) 08/08/2016 11:03 AM TENNIS PLAYER Body Mass Index 30.04 08/08/2016 11:03 AM TENNIS PLAYER Procedures * URINALYSIS AUTO - POINT OF CARE(Performed 08/08/2016) Performed for Hematuria Results * URINALYSIS AUTO - POINT OF CARE (08/08/2016 11:10 AM TENNIS PLAYER) Clarity UA POCT --- Color UA POCT --- Leukocyte UA negative Negative Nitrite UA POCT negative Negative Urobilinogen UA 0.2 0.1 - 1.0 Protein UA POCT negative Negative pH UA 7.0 5.0 - 8.0 pH units Blood UA trace-intact Negative Specific [place] UA POCT 1.020 1.002 - 1.030 Ketone UA negative Negative Bilirubin UA POCT negative Negative Glucose UA negative Negative Urine URINE / Unknown 08/08/2016 1 1:10 AM TENNIS PLAYER Liborio Vuong MD LAB - POINT OF CARE ORDERABLES Care Teams Founder / Ceo Relationship Specialty Start Date End Date Unknown, Provider PCP - General 08/08/16
--- OUTSIDE RECORDS SUMMARY | 2024-09-05 00:25 | XMS_ITS | Clinical Summary ---
Author Organization [facility] Address [address] [place] [address] Care Team Providers Care Journal Entry Audit Clerk Name Role Phone JoeyIsmael Unavailable Ismael Cook DO Primary Care Provider [phone] Allergies Active Allergy Reactions Criticality Noted Date Comments Lisinopril Cough Low 05/22/2020 Penicillins Hives Medium 07/24/2016 Propranolol Shortness of breath High 06/09/2022 Qqexvzq-Rtw-Qsw Reductase Inhibitors Other (See comments) Low 12/20/2018 Muscle aches Medications amLODIPine (NORVASC) 10 mg tabletIndicatio ns:hypertension Take 1 tablet (10 mg total) by mouth early childhood education coordinator before breakfast 1 Active clopidogreL (PLAVIX) 75 mg tabletIndicatio ns:myocardial infarction prevention,s/p stent 2019 Take 1 tablet (75 mg total) by mouth nightly 1 Active losartan (COZAAR) 25 mg tabletIndicatio ns:hypertension Take 1 tablet (25 mg total) by mouth early childhood education coordinator before breakfast 1 Active metoprolol XL (TOPROL-XL) 50 mg extended release tabletIndicatio ns:hypertension 1 tablet (50 mg total) nightly 1 Active thyroid (ARMOUR THYROID) 90 mg tabletIndicatio ns:hypothyroidi sm Take 90 mg by mouth early childhood education coordinator before breakfast 1 Active rosuvastatin (CRESTOR) 5 mg tabletIndicatio ns:hyperlipidem ia Take 1 tablet (5 mg total) by mouth nightly 1 Active cholecalciferol (VITAMIN D-3) 3,000 unit tabletIndicatio ns:supplement Take 1 tablet (3,000 Units total) by mouth early childhood education coordinator before breakfast Active potassium 99 mg tabletIndicatio ns:hypokalemia prevention Take 1 tablet (99 mg total) by mouth nightly 9 Active multivitamin tabletIndicatio ns:Vitamin Deficiency Prevention Take 1 tablet by mouth early childhood education coordinator before breakfast Active calcium-magnesi um-zinc 333-133-5 mg tabletIndicatio ns:RLS Take 1 tablet by mouth nightly Active coenzyme Q10 10 mg capsuleIndicati ons:supplement Take 1 capsule (10 mg total) by mouth nightly Active UNABLE TO FINDIndications :supplement Take 2 each by mouth early childhood education coordinator before breakfast Med Name: CitraNox Active ascorbic acid (VITAMIN C) 1,000 mg tabletIndicatio ns:supplement Take 1 tablet (1,000 mg total) by mouth 2 (two) times a day Active artificial tears,hypromell ose, 0.3 % drops Administer into affected eye(s) Active omega-3 fatty acids-fish oil 300-1,000 mg capsuleIndicati ons:hypertrigly ceridemia Take 2 capsules (2 g total) by mouth early childhood education coordinator before breakfast Active nitroglycerin (NITROSTAT) 0.4 mg [...] (06/09/2022): Added automatically from request for surgery [id number] Diverticulosis 08/26/2021 Esophageal stricture 08/26/2021 Gastroduodenitis 08/26/2021 Hiatal hernia 08/26/2021 Internal hemorrhoids 08/26/2021 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..] on file Legal Sex Female 8:12 AM CLINICAL RN Gender Identity Not on file Sexual Orientation Not on file Obstetrics History Para Term AB IAB SAB Ectopic Multiple Livin g Live Births 4 4 4 4 4 Date Outcome GA Total Labor Labor/08/22 Weight Sex Type Anes PTL Addie A1 A5 Name Clin Term Term Term Term Last Filed Vital Signs Vital Sign Reading Time Taken Comments Blood Pressure 142/82 08/17/2023 11:23 AM CLINICAL RN Pulse 74 08/17/2023 11:23 AM CLINICAL RN Temperature 36.8 C (98.2 F) 08/17/2023 11:23 AM CLINICAL RN Respiratory Rate 16 08/17/2023 11:23 AM CLINICAL RN Oxygen Saturation 97% 08/17/2023 11:23 AM CLINICAL RN Inhaled Oxygen Concentration - - Weight 75.8 kg (167 lb 1.6 oz) 08/17/2023 11:23 AM CLINICAL RN Height 160 cm (5' 2.99 ) 08/17/2023 11:23 AM CLINICAL RN Body Mass Index 29.61 08/17/2023 11:23 AM CLINICAL RN Plan of Treatment Health Maintenance Due Date Last Done Comments Colon Cancer Screening-Colonoscopy 1950 Depression Screening 1950 Hepatitis C Screening 1950 Hepatitis B Screening 1969 DTaP/Tdap/Td Vaccine (1 - Tdap) 12/19/1998 9 Pneumococcal vaccine 65+ (1 of 1 - PCV) 2001 Zoster Vaccine (1 of 2) 2001 Well Visit 65+ 2016 Fall Risk Assessment 07/10/2023 07/10/2022 Osteoporosis Screening-Bone Density Scan 08/07/2023 08/07/2021 Covid-19 Vaccine (3 - 2023-2 5 season) 2024 09/26/2020, 2020 Influenza Vaccine (#1) 2024 , 05/19/2020, 06/02/2019 Breast Cancer Screening-Mammogram 04/18/2025 04/18/2024, 04/18/2024, 08/07/2021, Additional history exists Insurance MEDICARE [facility] MEDICARE [facility] MEDIC[facility] Care Teams Journal Entry Audit Clerk Relationship Specialty Start Date End Date Ismael Cook DO [address] [address] PCP - General Family Medicine 06/09/22 Ismael Cook DO [address] [facility] [address] [place] [address] Family Medicine 05/22/22
--- OUTSIDE RECORDS SUMMARY | 2024-09-05 00:25 | XMS_ITS | Encounter Summary ---
Author Organization [facility] Address [address] [place] [address] Care Team Providers Care Manager Of Application Development Name Role Phone Moe Arndt [facility] Primary Care Provider [phone] Misti Harris MD Unavailable [phone] Rashawn Almazan MD Unavailable [phone] Ismael Cook DO Primary Care Provider Chrissy Easton [facility] Primary Care Provider + Encounter Details Date Type Department Care Team (Late st Contact Info) Description 07/06/2018 Guest[employer] Network Message [address] [address] [facility] [address] [facility] [address] [place] [address] Test Results Social History Tobacco Use Types Packs/Day Years Used Date Smoking Tobacco: Never Smokeless Tobacco: Never Alcohol Use Standard Drinks/Week Comments Yes 0 (1 standard drink = 0.6 oz pur e alcohol) rarely Comments Unknown Sex and Gender Information Value Date Recorded Sex Assigned at Female 2024 9:46 AM PHYSICIAN AIDE Legal Sex Female 4:22 PM CDT Gender Identity Female 08/06/2021 1:53 PM PHYSICIAN AIDE Sexual Orientation Straight 08/06/2021 1: 53 PM PHYSICIAN AIDE documented as of this encounter Plan of Treatment Upcoming Encounters Date Type Department Care Team (Late st Contact Info) Description 04/03/2025 10:15 AM CDT Office Visit [facility] [address] [place] [address] Rashawn Almazan MD [facility]. [address] [place] [address] documented as of this encounter Visit Diagnoses Not on filedocumented in this encounter Care Teams Manager Of Application Development Relationship Specialty Start Date End Date Moe Arndt FNP [address] [place] [address] PCP - General NURSE PRACTITIONER 06/30/18 04/28/21 Ismael Cook DO [facility]. [address] [place] [address] PCP - General FAMILY PRACTICE 04/29/21 10/25/23 Chrissy Easton FNP- [address] [place] [id number] PCP - General NURSE PRACTITIONER 10/26/23 Misti Harris MD [facility]. [address] [place], [place] [address] Civil Geotechnical Engineer INTERVENTIONAL CARDIOLOGY 12/24/18 Rashawn Almazan MD Three [facility]. [address] [place], [place] [address] Ledy Stitch Cleaner CARDIOVASCULAR DISEASE 12/19/18 documented as of this encounter
--- OUTSIDE RECORDS SUMMARY | 2024-09-05 00:25 | XMS_ITS | Encounter Summary ---
Author Organization [facility] Address [address] [place] [address] Care Team Providers Care Senior Technical Architect Name Role Phone Moe Arndt [facility] Primary Care Provider [phone] Misti Harris MD Unavailable [phone] Rashawn Almazan MD Unavailable [phone] Ismael Cook DO Primary Care Provider Chrissy Easton [facility] Primary Care Provider + Encounter Details Date Type Department Care Team (Late st Contact Info) Description 11/09/2017 Abstract [facility] Conversion Moe Arndt FNP [address] [facility] [address] [place] [address] Social History Tobacco Use Types Packs/Day Years Used Date Smoking Tobacco: Never Assessed Comments Unknown Sex and Gender Information Value Date Recorded Sex Assigned at Female 2024 9:46 AM PRECIPITATION EQUIPMENT TENDER Legal Sex Female 4:22 PM CDT Gender Identity Female 08/06/2021 1:53 PM PRECIPITATION EQUIPMENT TENDER Sexual Orientation Straight 08/06/2021 1: 53 PM PRECIPITATION EQUIPMENT TENDER documented as of this encounter Miscellaneous Notes * Letter - KRISTEN Mccord - 11/09/2017 12:00 AM CDT 11-09-2017 , Liseth Mckeon [address] [place] [address] : 1950 Radiology: MRI LE, Left Ankle Without contrast M25.572 Pain in left ankle and joints of left foot Fasting [] Non-Fasting [] Normal [] Stat [] Electronically Signed By: Moe Arndt COUNTRY PRINTER IPITATION EQUIPMENT TENDER documented in this encounter Plan of Treatment Upcoming Encounters Date Type Department Care Team (Late st Contact Info) Description 04/03/2025 10:15 AM CDT Office Visit [facility] [place] [address] [place] [phone] Rashawn Almazan MD [facility] [address] [place] [address] documented as of this encounter Visit Diagnoses Not on filedocumented in this encounter Care Teams Senior Technical Architect Relationship Specialty Start Date End Date Moe Arndt FNP [address] [facility] [address] [place] [address] PCP - General NURSE PRACTITIONER 06/30/18 04/28/21 Ismael Cook DO [facility]. [address] [place] [address] PCP - General FAMILY PRACTICE 04/29/21 10/25/23 Chrissy Easton FNP- [address] [place] [address] PCP - General NURSE PRACTITIONER 10/26/23 Misti Harris MD [facility] [address] [place] [address] Button Sewing Machine Operator INTERVENTIONAL CARDIOLOGY 12/24/18 Rashawn Almazan MD [facility] [address] [place] [address] [place] Textile Colorist Dyer CARDIOVASCULAR DISEASE 12/19/18 documented as of this encounter
--- OUTSIDE RECORDS SUMMARY | 2024-09-05 00:25 | XMS_ITS | Encounter Summary ---
Author Organization [facility] Address [address] [place] [address] Care Team Providers Care Microbiological Laboratory Technician Name Role Phone Misti Harris MD Unavailable [phone] Rashawn Almazan MD Unavailable [phone] Ismael Cook DO Primary Care Provider Chrissy Easton [facility] Primary Care Provider + Encounter Details Date Type Department Care Team (Late st Contact Info) Description 12/12/2021 Mobile Location, IP Message Enc [facility] [address] [address] Zeny, [facility] Provider Test results Social History Tobacco [...] Sex Assigned at Female 2024 9:46 AM ADMINISTRATIVE SUPPORT MANAGER Legal Sex Female 4:22 PM CDT Gender Identity Female 08/06/2021 1:53 PM ADMINISTRATIVE SUPPORT MANAGER Sexual Orientation Straight 08/06/2021 1: 53 PM ADMINISTRATIVE SUPPORT MANAGER COVID-19 Exposure Response Date Recorded In the [...] Date Author Status No 12/19/2018 2:36 AM AUBRIET Cassia Ugalde RN Active documented in this encounter Plan of Treatment Upcoming Encounters Date Type Department Care Team (Late st Contact Info) Description 04/03/2025 10:15 AM CDT Office Visit [facility] [address] [place] [address] Rashawn Almazan MD [facility] [address] [place] [address] documented as of this encounter Visit Diagnoses Not on filedocumented in this encounter Care Teams Microbiological Laboratory Technician Relationship Specialty Start Date End Date Ismael Cook DO [address] [place] [address] PCP - General FAMILY PRACTICE 04/29/21 10/25/23 Chrissy Easton, [facility] [address] [place] [address] PCP - General NURSE PRACTITIONER 10/26/23 Misti Harris MD [facility] [address] [place] [address] Clinic Scheduler INTERVENTIONAL CARDIOLOGY 12/24/18 Rashawn Almazan MD [address] [place] [address] Ledy Hall Monitor CARDIOVASCULAR DISEASE 12/19/18 documented as of this encounter
--- OUTSIDE RECORDS SUMMARY | 2024-09-05 00:25 | XMS_ITS | Referral Summary ---
Author Organization [facility] Address [address] [place] [address] Care Team Providers Care Natural Gas Plant Technician Name Role Phone Unknown, Provider Primary Care Provider Unavaila ble Source Comments [facility],non-owned Affiliates and Associated Physician Practices is amultiple site organization consisting of ambulatory clinics and hospital sitesin [place], [place], [place] and [place]. This disclosure is being madepursuant to the Care Everywhere program and may not contain all information available regarding this patient. Last updated 18.[facility] Allergies Active Allergy Reactions Criticality Noted Date [...] PO) Take by mouth once daily Active RGVCMOS-KSYXTASKA-ETB C PO Active [place]-3 Fatty Acids (FISH OIL) 1000 MG capsule Take 1,000 mg by mouth once daily Reported on 08/08/2016 Active [place] 3 340 MG capsule Take 1 Cap [...] Comments Blood Pressure 146/97 08/08/2016 11:03 AM SYSTEMS QA ANALYST Pulse 72 08/08/2016 11:03 AM SYSTEMS QA ANALYST Temperature - - Respiratory Rate - - Oxygen Saturation - - Inhaled Oxygen Concentration - - Weight 79.4 kg (175 lb) 08/08/2016 11:03 AM SYSTEMS QA ANALYST Height 162.6 cm (5' 4 ) 08/08/2016 11:03 AM SYSTEMS QA ANALYST Body Mass Index 30.04 08/08/2016 11:03 AM SYSTEMS QA ANALYST Plan of Treatment Not on file Care Teams Natural Gas Plant Technician Relationship Specialty Start Date End Date Unknown, Provider PCP - General 08/08/16
--- OUTSIDE RECORDS SUMMARY | 2024-09-05 00:25 | XMS_ITS | Encounter Summary ---
Author Organization [facility] Address [address] [place] [address] Care Team Providers Care Tip Cutter Name Role Phone Moe Arndt [facility] Primary Care Provider [phone] Misti Harris MD Unavailable [phone] Rashawn Almazan MD Unavailable [phone] Ismael Cook DO Primary Care Provider Chrissy Easton [facility] Primary Care Provider + Encounter Details Date Type Department Care Team (Late st Contact Info) Description 09/17/2020 SputnikBot Message [address] [address] [facility] [address] [place] [address] [address] [place] [address] RE: Test Results Social History Tobacco Use Types Packs/Day Years Used Date Smoking Tobacco: Never Smokeless Tobacco: Never Alcohol Use Standard Drinks/Week Comments Yes 0 (1 standard drink = 0.6 oz pur e alcohol) rarely PHQ-2 Answer Date Recorded PHQ-2 Score 0 05/28/2020 Comments No Sex and Gender Information Value Date Recorded Sex Assigned at Female 2024 9:46 AM SUPERVISING NURSE Legal Sex Female 4:22 PM CDT Gender Identity Female 08/06/2021 1:53 PM SUPERVISING NURSE Sexual Orientation Straight 08/06/2021 1: 53 PM SUPERVISING NURSE COVID-19 Exposure Response Date Recorded In the last month, have you been in contact with someone who was confirmed or suspected to have Coronavirus / COVID-19? No / Unsure 09/13/2020 7:37 AM SUPERVISING NURSE documented as of this encounter Functional [...] 09/18/2020 9:32 AM CST That is great! RVISING NURSE documented in this encounter Plan of Treatment Upcoming Encounters Date Type Department Care Team (Late st Contact Info) Description 04/03/2025 10:15 AM CDT Office Visit [facility] [address] [place] [address] Rashawn Almazan MD [facility]. [address] [place] [address] documented as of this encounter Visit Diagnoses Not on filedocumented in this encounter Care Teams Tip Cutter Relationship Specialty Start Date End Date Moe Arndt FNP [address] [facility] [address] [place] [address] PCP - General NURSE PRACTITIONER 06/30/18 04/28/21 Ismael Cook DO [facility]. [facility] [address] [place] [address] PCP - General FAMILY PRACTICE 04/29/21 10/25/23 Chrissy Easton [facility]- [address] [place] [address] PCP - General NURSE PRACTITIONER 10/26/23 Misti Harris MD [facility]. [facility] [address] [place] [address] Porter Baggage INTERVENTIONAL CARDIOLOGY 12/24/18 Rashawn Almazan MD [facility]. [address] [place] [address] Ledy Product Finisher CARDIOVASCULAR DISEASE 12/19/18 documented as of this encounter
--- OUTSIDE RECORDS SUMMARY | 2024-09-05 00:25 | XMS_ITS | Referral Summary ---
Author Organization [facility] Address [address] [place] [address] Care Team Providers Care Principal Software Engineer Name Role Phone Ismael Cook DO Unavailable JanetIsmael benites Primary Care Provider [phone] Encounters Date Type Department Care Team Description 08/05/2024 Telephone [facility] Obstetrics and Gynecology [address] [facility] 13th [place] [address] [place] [address] Sera Chase RN from Last 3 Months Allergies Active Allergy Reactions Criticality Noted Date Comments Lisinopril Cough Low 05/22/2020 Penicillins Hives Medium 07/24/2016 Propranolol Shortness of breath High 06/09/2022 Tbdggtr-Lxf-Jgh Reductase Inhibitors Other (See comments) Low 12/20/2018 Muscle aches Medications amLODIPine (NORVASC) 10 mg tabletIndicatio ns:hypertension Take 1 tablet (10 mg total) by mouth strap sewer before breakfast 1 Active clopidogreL (PLAVIX) 75 mg tabletIndicatio ns:myocardial infarction prevention,s/p stent 2019 Take 1 tablet (75 mg total) by mouth nightly 1 Active losartan (COZAAR) 25 mg tabletIndicatio ns:hypertension Take 1 tablet (25 mg total) by mouth strap sewer before breakfast 1 Active metoprolol XL (TOPROL-XL) 50 mg extended release tabletIndicatio ns:hypertension 1 tablet (50 mg total) nightly 1 Active thyroid (ARMOUR THYROID) 90 mg tabletIndicatio ns:hypothyroidi sm Take 90 mg by mouth strap sewer before breakfast 1 Active rosuvastatin (CRESTOR) 5 mg tabletIndicatio ns:hyperlipidem ia Take 1 tablet (5 mg total) by mouth nightly 1 Active cholecalciferol (VITAMIN D-3) 3,000 unit tabletIndicatio ns:supplement Take 1 tablet (3,000 Units total) by mouth strap sewer before breakfast Active potassium 99 mg tabletIndicatio ns:hypokalemia prevention Take 1 tablet (99 mg total) by mouth nightly 9 Active multivitamin tabletIndicatio ns:Vitamin Deficiency Prevention Take 1 tablet by mouth strap sewer before breakfast Active calcium-magnesi um-zinc 333-133-5 mg tabletIndicatio ns:RLS Take 1 tablet by mouth nightly Active coenzyme Q10 10 mg capsuleIndicati ons:supplement Take 1 capsule (10 mg total) by mouth nightly Active UNABLE TO FINDIndications :supplement Take 2 each by mouth strap sewer before breakfast Med Name: CitraNox Active ascorbic acid (VITAMIN C) 1,000 mg tabletIndicatio ns:supplement Take 1 tablet (1,000 mg total) by mouth 2 (two) times a day Active artificial tears,hypromell ose, 0.3 % drops Administer into affected eye(s) Active omega-3 fatty acids-fish oil 300-1,000 mg capsuleIndicati ons:hypertrigly ceridemia Take 2 capsules (2 g total) by mouth strap sewer before breakfast Active nitroglycerin (NITROSTAT) 0.4 mg [...] 17 g by mouth daily 235 g Active Additional Information Patient taking differently:17 g oralAs needed, Reported on 08/17/2023 Active Problems Problem Noted Date Diagnosed Date 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 Pelvic mass in female 06/09/2022 Overview (06/09/2022): Added automatically from request for surgery [id number] Diverticulosis 08/26/2021 Esophageal stricture 08/26/2021 Gastroduodenitis 08/26/2021 Hiatal hernia 08/26/2021 Internal hemorrhoids 08/26/2021 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 Mixed hyperlipidemia 03/01/2021 Primary hypertension 03/01/2021 Coronary artery disease invo lving [place] coronary artery of [place] heart 03/01/2021 Chronic gastritis 12/01/2017 Hypothyroidism 10/02/2015 Osteoarthrosis 10/02/2015 Osteoarthritis of cervical spine 10/01/2009 Immunizations Immunization Administration Dates Next Due Influenza, [...] on file Legal Sex Female 8:12 AM BIOMASS PLANT MANAGER Gender Identity Not on file Sexual Orientation Not on file Last Filed Vital Signs Vital Sign Reading Time Taken Comments Blood Pressure 142/82 08/17/2023 11:23 AM BIOMASS PLANT MANAGER Pulse 74 08/17/2023 11:23 AM BIOMASS PLANT MANAGER Temperature 36.8 C (98.2 F) 08/17/2023 11:23 AM BIOMASS PLANT MANAGER Respiratory Rate 16 08/17/2023 11:23 AM BIOMASS PLANT MANAGER Oxygen Saturation 97% 08/17/2023 11:23 AM BIOMASS PLANT MANAGER Inhaled Oxygen Concentration - - Weight 75.8 kg (167 lb 1.6 oz) 08/17/2023 11:23 AM BIOMASS PLANT MANAGER Height 160 cm (5' 2.99 ) 08/17/2023 11:23 AM BIOMASS PLANT MANAGER Body Mass Index 29.61 08/17/2023 11:23 AM BIOMASS PLANT MANAGER Plan of Treatment Not on file Insurance MEDICARE [facility] MEDICARE [employer] [facility] [place] MEDICARE [employer] [facility] [place] Care Teams Principal Software Engineer Relationship Specialty Start Date End Date Ismael Cook DO [address] [place] [id number] PCP - General Family Medicine 06/09/22 Ismael Cook DO [address] [place] [id number] Family Medicine 05/22/22
--- OUTSIDE RECORDS SUMMARY | 2024-09-05 00:25 | XMS_ITS | Encounter Summary ---
Author Organization [facility] Address [address] [place] [address] Care Team Providers Care Billing Supervisor Name Role Phone Misti Harris MD Unavailable [phone] Rashawn Almazan MD Unavailable [phone] Ismael Cook DO Primary Care Provider Chrissy Easton [facility] Primary Care Provider + Encounter Details Date Type Department Care Team (Late st Contact Info) Description 12/12/2021 [employer] Message Enc [facility] [address] [place], [facility] Provider Carotid Ultrasound Social History Tobacco [...] Sex Assigned at Female 2024 9:46 AM PAPER SUPERVISOR Legal Sex Female 4:22 PM CDT Gender Identity Female 08/06/2021 1:53 PM PAPER SUPERVISOR Sexual Orientation Straight 08/06/2021 1: 53 PM PAPER SUPERVISOR COVID-19 Exposure Response Date Recorded In the [...] Description 04/03/2025 10:15 AM CDT Office Visit [facility] [address] [place] [address] Rashawn Almazan MD [facility]. [address] [place] [address] documented as of this encounter Visit Diagnoses Not on filedocumented in this encounter Care Teams Billing Supervisor Relationship Specialty Start Date End Date Ismael Cook DO [address] [place] [address] PCP - General FAMILY PRACTICE 04/29/21 10/25/23 Chrissy Easton, [facility] [address] [place] [address] PCP - General NURSE PRACTITIONER 10/26/23 Misti Harris MD [facility] [address] [place] [address] Railroad Car Letterer INTERVENTIONAL CARDIOLOGY 12/24/18 Rashawn Almazan MD [address] [place] [address] Ledy Project Facilitator CARDIOVASCULAR DISEASE 12/19/18 documented as of this encounter
--- OUTSIDE RECORDS SUMMARY | 2024-09-05 00:25 | XMS_ITS | Encounter Summary ---
Author Organization [facility] System Address [address] [place] [address] Care Team Providers Care Home Energy Rater Name Role Phone Moe Arndt [facility] Primary Care Provider [phone] Misti Harris MD Unavailable [phone] Rashawn Almazan MD Unavailable [phone] Ismael Cook Primary Care Provider Chrissy Easton [facility] Primary Care Provider + Encounter Details Date Type Department Care Team (Late st Contact Info) Description 12/25/2018 Abstract [facility] CONVERSION [address] [place] [address] , Generic Conversion, Social History Tobacco Use Types Packs/Day Years Used Date Smoking Tobacco: Never Smokeless Tobacco: Never Alcohol Use Standard Drinks/Week Comments Yes 0 (1 standard drink = 0.6 oz pur e alcohol) rarely Comments No Sex and Gender Information Value Date Recorded Sex Assigned at Female 2024 9:46 AM MOTOR BLOCK MECHANIC Legal Sex Female 4:22 PM CDT Gender Identity Female 08/06/2021 1:53 PM MOTOR BLOCK MECHANIC Sexual Orientation Straight 08/06/2021 1 :53 PM MOTOR BLOCK MECHANIC documented as of this encounter Functional Status [...] Description 04/03/2025 10:15 AM CDT Office Visit [facility] [address] [place] [phone] Rashawn Almazan MD [facility]. [facility] [address] [place], [place] [address] documented as of this encounter Visit Diagnoses Not on filedocumented in this encounter Care Teams Home Energy Rater Relationship Specialty Start Date End Date Moe Arndt FNP [address] [facility] [address] [place] [address] PCP - General NURSE PRACTITIONER 06/30/18 04/28/21 Ismael Cook DO [facility]. [facility] [address] [place] [address] PCP - General FAMILY PRACTICE 04/29/21 10/25/23 Chrissy Easton, [facility]- [address] [place] [address] PCP - General NURSE PRACTITIONER 10/26/23 Misti Harris MD [facility] [address] [place] [address] Physiatrist INTERVENTIONAL CARDIOLOGY 12/24/18 Rashawn Almazan MD [facility] [address] [place] [address] [place] Monkey Breeder CARDIOVASCULAR DISEASE 12/19/18 documented as of this encounter
--- OUTSIDE RECORDS SUMMARY | 2024-09-05 00:25 | XMS_ITS | Encounter Summary ---
Author Organization [facility] System Address [address] [place] [address] Care Team Providers Care Avionics Systems Engineer Name Role Phone Moe Arndt [facility] Primary Care Provider [phone] Misti Harris MD Unavailable [phone] Rashawn Almazan MD Unavailable [phone] Ismael Cook DO Primary Care Provider Chrissy Easton [facility] Primary Care Provider + Encounter Details Date Type Department Care Team (Late st Contact Info) Description 12/22/2018 Hospital Follow-up Call [facility] Telemetry Unit B [facility] [address] Mayelin Mcdonald Social History Tobacco Use Types Packs/Day Years Used Date Smoking Tobacco: Never Smokeless Tobacco: Never Alcohol Use Standard Drinks/Week Comments Yes 0 (1 standard drink = 0.6 oz pur e alcohol) rarely Comments No Sex and Gender Information Value Date Recorded Sex Assigned at Female 2024 9:46 AM CORROSION CONTROL FITTER Legal Sex Female 4:22 PM CDT Gender Identity Female 08/06/2021 1:53 PM CORROSION CONTROL FITTER Sexual Orientation Straight 08/06/2021 1: 53 PM CORROSION CONTROL FITTER documented as of this encounter Functional Status [...] Description 04/03/2025 10:15 AM CDT Office Visit [facility] [address] [place] [phone] Rashawn Almazan MD [place] [address] [place] [address] documented as of this encounter Visit Diagnoses Not on filedocumented in this encounter Care Teams Avionics Systems Engineer Relationship Specialty Start Date End Date Moe Arndt FNP [address] [facility] [address] [place] [address] PCP - General NURSE PRACTITIONER 06/30/18 04/28/21 Ismael Cook DO [facility] [address] [place] [address] PCP - General FAMILY PRACTICE 04/29/21 10/25/23 Chrissy Easton, HOLE DIGGER TRUCK DRIVER- [address] [place] [address] PCP - General NURSE PRACTITIONER 10/26/23 Misti Harris MD [facility] [address] [place] [address] Pull Tab Dealer INTERVENTIONAL CARDIOLOGY 12/24/18 Rashawn Almazan MD [address] [facility] [address] [place] [address] [place] Needle Loom Operator CARDIOVASCULAR DISEASE 12/19/18 documented as of this encounter
--- OUTSIDE RECORDS SUMMARY | 2024-09-05 00:25 | XMS_ITS | Encounter Summary ---
Author Organization [facility] System Address [address] [place] [address] Care Team Providers Care Field Instructor Name Role Phone Misti Harris MD Unavailable Rashawn Almazan MD Unavailable [phone] Ismael Cook DO Primary Care Provider Chrissy Easton [facility] Primary Care Provider + Encounter Details Date Type Department Care Team (Late st Contact Info) Description 11/26/2021 [place] [address] [address] [place], [facility] Provider Appointment Social History Tobacco Use [...] Sex Assigned at Female 2024 9:46 AM SALES AND SERVICE AGENT Legal Sex Female 4:22 PM CDT Gender Identity Female 08/06/2021 1:53 PM SALES AND SERVICE AGENT Sexual Orientation Straight 08/06/2021 1: 53 PM SALES AND SERVICE AGENT COVID-19 Exposure Response Date Recorded In the [...] Description 04/03/2025 10:15 AM CDT Office Visit [facility] [address] [facility] [place] [address] Rashawn Almazan MD [facility]. [place] [address] [place] [address] documented as of this encounter Visit Diagnoses Not on filedocumented in this encounter Care Teams Field Instructor Relationship Specialty Start Date End Date Ismael Cook DO Three [facility]. [facility] [address] [place] [address] PCP - General FAMILY PRACTICE 04/29/21 10/25/23 Chrissy Easton, [facility]- [address] [place] [address] PCP - General NURSE PRACTITIONER 10/26/23 Misti Harris MD [facility]. [facility] [address] [place] [address] Appliance Service Supervisor INTERVENTIONAL CARDIOLOGY 12/24/18 Rashawn Almazan MD [facility]. [facility] [address] [place] [address] [place] Wardrobe Assistant CARDIOVASCULAR DISEASE 12/19/18 documented as of this encounter
--- OUTSIDE RECORDS SUMMARY | 2024-09-05 00:25 | XMS_ITS | Encounter Summary ---
Author Organization [facility] Address [address] [place] [address] Care Team Providers Care Biology Specimen Technician Name Role Phone Misti Harris MD Unavailable [phone] Rashawn Almazan MD Unavailable [phone] Ismael Cook DO Primary Care Provider Chrissy Easton [facility] Primary Care Provider + Encounter Details Date Type Department Care Team (Late st Contact Info) Description 09/26/2021 [place] Message [address] [address] Ismael Cook DO [address] [place] [address] appt of 09/19/21 Social History Tobacco [...] Sex Assigned at Female 2024 9:46 AM JAVA DEVELOPER CONSULTANT Legal Sex Female 4:22 PM CDT Gender Identity Female 08/06/2021 1:53 PM JAVA DEVELOPER CONSULTANT Sexual Orientation Straight 08/06/2021 1: 53 PM JAVA DEVELOPER CONSULTANT COVID-19 Exposure Response Date Recorded In the last 10 days, have yo u been in contact with someone who was confirmed or suspected to have Coronavirus/COVID-19? No / Unsure 09/18/2021 5:56 PM JAVA DEVELOPER CONSULTANT documented as of this encounter Functional [...] Description 04/03/2025 10:15 AM CDT Office Visit [facility] [address] [place] [address] Rashwan Almazan MD [facility]. [facility] [address] [place] [address] documented as of this encounter Visit Diagnoses Not on filedocumented in this encounter Care Teams Biology Specimen Technician Relationship Specialty Start Date End Date Ismael CookDO [facility]. [facility] [address] [place] [address] PCP - General FAMILY PRACTICE 04/29/21 10/25/23 Chrissy Easton, [facility]- [address] [place] [address] PCP - General NURSE PRACTITIONER 10/26/23 Misti Harris MD [facility]. [facility] [address] [place] [address] Diving Judge INTERVENTIONAL CARDIOLOGY 12/24/18 Rashawn Almazan MD [facility]. [facility] [address] [place] [address] [place] Kettle Skimmer CARDIOVASCULAR DISEASE 12/19/18 documented as of this encounter
--- OUTSIDE RECORDS SUMMARY | 2024-09-05 00:25 | XMS_ITS | Encounter Summary ---
Author Organization [facility] System Address [address] [place] [address] Care Team Providers Care Carpenter Cradle And Dolly Name Role Phone Misti Harris MD Unavailable [phone] Rashawn Almazan MD Unavailable [phone] Ismael Cook DO Primary Care Provider Chrissy Easton [facility] Primary Care Provider + Encounter Details Date Type Department Care Team (Late st Contact Info) Description 01/08/2023 Gravity Message Enc [facility], [address] [address] [place], [facility] Provider Stress Test looks good Social History [...] Sex Assigned at Female 2024 9:46 AM WAREHOUSE SHIPPING RECEIVING CLERK Legal Sex Female 4:22 PM CDT Gender Identity Female 08/06/2021 1:53 PM WAREHOUSE SHIPPING RECEIVING CLERK Sexual Orientation Straight 08/06/2021 1: 53 PM WAREHOUSE SHIPPING RECEIVING CLERK COVID-19 Exposure Response Date Recorded In the [...] AM CDT Cassia Ugalde RN Active documented in this encounter Plan of Treatment Upcoming Encounters Date Type Department Care Team (Late st Contact Info) Description 04/03/2025 10:15 AM CDT Office Visit [facility] [address] [place] [address] [place] [address] Rashawn Almazan MD [facility]. [place] [address] [place], [place] [id number] documented as of this encounter Visit Diagnoses Not on filedocumented in this encounter Care Teams Carpenter Cradle And Dolly Relationship Specialty Start Date End Date JanetkamariIsmael DO Three [facility]. [facility] [address] [place] [address] PCP - General FAMILY PRACTICE 04/29/21 10/25/23 Chrissy Easton, [facility]- [address] [place] [address] PCP - General NURSE PRACTITIONER 10/26/23 Misti Harris MD [facility]. [facility] [address] [place] [address] Needle Felt Making Machine Operator INTERVENTIONAL CARDIOLOGY 12/24/18 Rashawn Almazan MD [facility]. [facility] [address] [place] [address] [place] Rickshaw Driver CARDIOVASCULAR DISEASE 12/19/18 documented as of this encounter
--- OUTSIDE RECORDS SUMMARY | 2024-09-05 00:25 | XMS_ITS | Encounter Summary ---
Author Organization [facility] System Address [address] [place] [address] Care Team Providers Care Construction Inspector Name Role Phone Moe Arndt [facility] Primary Care Provider [phone] Misti Harris MD Unavailable [phone] Rashawn Almazan MD Unavailable [phone] Ismael Cook Primary Care Provider Chrissy Easton [facility] Primary Care Provider + Encounter Details Date Type Department Care Team (Late st Contact Info) Description 01/06/2002 Abstract [facility] Conversion , Generic ConversionMD Social History Tobacco Use Types Packs/Day Years Used Date Smoking Tobacco: Never Assessed Comments Unknown Sex and Gender Information Value Date Recorded Sex Assigned at Female 2024 9:46 AM JAVA J2EE LEAD Legal Sex Female 4:22 PM CDT Gender Identity Female 08/06/2021 1:53 PM JAVA J2EE LEAD Sexual Orientation Straight 08/06/2021 1: 53 PM JAVA J2EE LEAD documented as of this encounter Plan of Treatment Upcoming Encounters Date Type Department Care Team (Late st Contact Info) Description 04/03/2025 10:15 AM CDT Office Visit [facility] [address] [place] [address] Rashawn Almazan MD [address] [place] [address] [place] [address] documented as of this encounter Visit Diagnoses Not on filedocumented in this encounter Care Teams Construction Inspector Relationship Specialty Start Date End Date Moe Arndt FNP [address] [facility] [address] [place] [address] PCP - General NURSE PRACTITIONER 06/30/18 04/28/21 Ismael Cook DO [address] [facility] [address] [place] [address] PCP - General FAMILY PRACTICE 04/29/21 10/25/23 Chrissy Easton FNP- [address] [place] [address] PCP - General NURSE PRACTITIONER 10/26/23 Misti Harris MD [address] [facility] [address] [place] [address] Hip Hop Dance Instructor INTERVENTIONAL CARDIOLOGY 12/24/18 Rashawn Almazan MD [address] [facility] [address] [place] [address] [place] Disability Benefits Specialist CARDIOVASCULAR DISEASE 12/19/18 documented as of this encounter
--- OUTSIDE RECORDS SUMMARY | 2024-09-05 00:25 | XMS_ITS | Clinical Summary ---
Author Organization [facility] Address [address] [place] [address] Care Team Providers Care Instrumentation Engineer Name Role Phone Misti Harris MD Unavailable [phone] Rashawn Almazan MD Unavailable [phone] Chrissy Easton [facility] Primary Care Provider + Allergies Active Allergy Reactions Criticality Noted Date Comments Lisinopril Cough 05/22/2020 Penicillins Hives 11/03/2017 Propranolol Shortness of Breath High 07/24/2016 Statins Other (see comment) 12/20/2018 Muscle aches Medications Probiotic Product (ADVANCED PROBIOTIC) Cap Take 1 capsule by mouth daily. Active Multiple Vitamins-Minerals (DAILY MULTIVITAMIN) Cap Take by mouth daily. 016 Active calcium-magnesium -zinc 333-133-5 MG TabIndications:th ree times a week Take by mouth see administration instructions. Active cholecalciferol 125 MCG (5000 UT) TabIndications:3 times a week Take 1 tablet (5,000 Units total) by mouth daily. Indications: 3 times a week 30 tablet 019 Active Potassium 99 MG tabletIndications :1 tab 3 times a week Take by mouth see administration instructions. Three times a week 019 Active Ascorbic Acid (VITAMIN C) 100 MG tablet Take 1 tablet (100 mg total) by mouth every evening. 90 tablet Active artificial tears 83-15 % ophthalmic ointmentIndicatio ns:soothe eye drops Place into both eyes as needed. Indications: soothe eye drops Active fish oil 1000 MG Cap capsule Take 1 capsule (1,000 mg total) by mouth daily. Active pantoprazole EC (PROTONIX) 40 MG tablet Take 1 tablet by mouth once daily 42 tablet Active nitroglycerin (NITROSTAT) 0.[address] 1 tablet (0.4 mg total) under the tongue every 5 (five) minutes as needed for Chest Pain. 25 tablet Active acetaminophen (TYLENOL) 500 MG tablet Take 2 tablets (1,000 mg total) by mouth every 6 (six) hours as needed. Active ibuprofen (MOTRIN) 600 MG tablet Take 1 tablet (600 mg total) by mouth every 6 (six) hours as needed. Active polyethylene glycol (GLYCOLAX) 17 GM/SCOOP powder Take 17 g by mouth daily. Active metoprolol succinate ER (TOPROL-XL) 50 MG 24 hr tabletIndications :Essential hypertension Take 1 tablet (50 mg total) by mouth daily. 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 Mixed hyperlipidemia 01/13/2019 Coronary artery disease invo lving [place] coronary artery of [place] heart 01/13/2019 Chronic gastritis 12/01/2017 Essential hypertension 10/02/2015 Hypothyroidism 10/02/2015 Osteoarthrosis 10/02/2015 Resolved Problems Problem Noted Date Diagnosed Date Resolved Date Statin intolerance 10/04/2020 NSTEMI (non-ST elevated myoc ardial infarction) ([facility]) 12/19/2018 06/21/2021 Encounters Date Type Department Care Team Description 09/02/2024 2:32 PM WRAPPER SELECTOR - 09/02/2024 11:59 PM WRAPPER SELECTOR Hospital Encounter [facility] [address] [place] [id number] Evelyn Winter MD Arrived Discharge Disposition: Home or Self Care (Routine Discharge) 09/02/2024 Orders Only [facility] [address] [place] [id number] Evelyn Winter MD 09/02/2024 Travel 2024 10:00 AM WRAPPER SELECTOR Office Visit [facility] [address] Keerthi Recinos WING COVERER-C Follow Up 2024 Travel 08/08/2024 9:10 AM WRAPPER SELECTOR - 08/08/2024 11:59 PM WRAPPER SELECTOR Hospital Encounter [facility] [address] [place] [address] Rashawn Almazan MD Discharge Disposition: Home or Self Care (Routine Discharge) 08/08/2024 Travel from Last 3 Months Immunizations Name [...] Sex Assigned at Female 2024 9:46 AM WRAPPER SELECTOR Legal Sex Female 4:22 PM CDT Gender Identity Female 08/06/2021 1:53 PM WRAPPER SELECTOR Sexual Orientation Straight 08/06/2021 1: 53 PM WRAPPER SELECTOR Last Filed Vital Signs Vital Sign Reading Time Taken Comments Blood Pressure 122/60 2024 9:54 AM WRAPPER SELECTOR Pulse 77 2024 9:54 AM WRAPPER SELECTOR Temperature 36.3 C (97.4 F) 05/24/2024 11:16 AM WRAPPER SELECTOR Respiratory Rate 18 05/24/2024 11:16 AM WRAPPER SELECTOR Oxygen Saturation 96% 2024 9:54 AM WRAPPER SELECTOR Inhaled Oxygen Concentration - - Weight 74.8 kg (165 lb) 2024 9:54 AM WRAPPER SELECTOR Height 162.6 cm (5' 4 ) 2024 9:54 AM WRAPPER SELECTOR Body Mass Index 28.32 2024 9:54 AM WRAPPER SELECTOR Plan of Treatment Upcoming Encounters Date Type Department Care Team (Late st Contact Info) Description 04/03/2025 10:15 AM CDT Office Visit [facility] [address] [place], [place] [address], [place] [address] Rashawn Almazan MD [address] [place] [address] [place] [address] Health Maintenance Due Date Last Done Comments Pneumococcal Vaccine: 65+ Years (1 of 2 - PCV) 1957 Hepatitis C 1969 DTaP, Tdap and Td Vaccines (1 - Tdap) 12/19/1998 12/18/1998 Zoster Vaccines (1 of 2) 2001 RSV Immunization or 60+ Years (1 - Risk 60-74 years 1-dose series) 2011 Annual Medicare Wellness Visit 2016 COVID-19 Vaccine ( season) 2024 09/26/2020, 2020 Influenza Adult (#1) 2024 06/21/2021, 05/19/2020, 06/02/2019, Additional history exists PHQ-2 (Physician [place]) 07/20/2024 05/24/2024 Colorectal Cancer Screening Colonoscopy (10 Years) 08/26/2024 08/26/2021, 08/26/2021, 11/24/2017 ASCVD LDL 09/01/2024 09/01/2023, 12/18, 01/11/2021, Additional history exists Mammogram Screening 04/18/2026 04/18/2024, Dexa Scan (General) [...] USE ECHOCARDIOGRAM Routine 08/08/2024 10 :37 AM WRAPPER SELECTOR Nonrheumatic mitral valve regurgitation MG SCREENING W ANABELLE SANJIV DIGI Routine 04/18/2024 4:44 PM CDT Encounter for screening mammogram for breast cancer LIPID PANEL Routine 09/01/2023 7:22 AM WRAPPER SELECTOR Mixed hyperlipidemia COLONOSCOPY Routine 08/26/2021 9:56 AM WRAPPER SELECTOR BONE DENSITY/DEXA Routine 08/07/2021 8:5 7 AM WRAPPER SELECTOR Postmenopausal from Last 3 Months or Most Recently Relevant to Health Maintenance Results * USE ECHOCARDIOGRAM (08/08/2024 10:37 AM WRAPPER SELECTOR) Anatomical Region Laterality Modality Cardiac Ultrasound 08/08/2024 9:54 AM WRAPPER SELECTOR Narrative 08/10/2024 6:32 PM WRAPPER SELECTOR ANANTH KITCHEN Pat.Name: Liseth Mckeon.ID: [id number] .Date: 08/08/2024 Refer.MD: Fidelina, [facility] Imaging Exam Time: 9:54:00 AM Study Type:OUTREACH Height: 64.2 in Weight: 163 lb BSA: 1.8 m2 Age: 2 1950,73Y Sex: F Sonogrphr: [place] Pat. Stat.:Outpatient Reason for Study:Mitral regurgitation Procedures: Study performed at [place], [place] and interpreted by [facility]. 2D, M-mode, Doppler, Color Flow [...] - 08/10/2024 ANANTH Baptiste.Name: Liseth Mckeon Oliva.ID: [id number] .Date: 08/08/2024 Refer.MD: Fidelina, [facility] Imaging Exam Time: 9:54:00 AM Study Type:FIDELINA Height: 64.2 in Weight: 163 lb BSA: 1.8 m2 Age: 2 1950,73Y Sex: F Sonogrphr: [place] Pat. Stat.:Outpatient Reason for Study:Mitral regurgitation Procedures: Study performed at [place], [place] and interpreted by [facility]. 2D, M-mode, Doppler, Color Flow [...] CDT Impressions 04/18/2024 4:55 PM CDT IMPRESSION: No significant interval change. No mammographic evidence of malignancy. RECOMMENDATION: Routine ScreeningBilateral OVERALL IMAGING ASSESSMENT: ACR BI-RADS 2 - BENIGN FINDING(S). Ordered By: CHRISSY EASTON Interpreted By: Oscar Jameson, 04/18/2024 4:53 PM Narrative 04/18/2024 4:55 [place] [address] EXAMINATION: MG SCREENING W ANABELLE SANJIV DIGI INDICATIONS: Screening TECHNIQUE: Digital full field CC and MLO [...] the most recent of 08/07/2021 and 01/07/2023 TISSUE DENSITY: There are scattered areas of fibroglandular density. FINDINGS: Few typically benign round calcifications. No suspicious microcalcification or mass. No developing asymmetry or architectural distortion. No axillary adenopathy. Chrissy Easton SENIOR STRUCTURAL ENGINEER-BC MAMMO Final Re sult * (ABNORMAL) LIPID PANEL (09/01/2023 7:22 AM WRAPPER SELECTOR) CHOLESTEROL 189 <200 MG/DL 09/01/2023 8:33 AM WRAPPER SELECTOR [facility] TRIGLYCERIDES 211(H) <150 MG/DL 09/01/2023 8:33 AM WRAPPER SELECTOR [facility] HDL 60 >40.0 MG/DL 09/01/2023 8:33 AM [facility] LDL (CALCULATED) 87 <100 MG/DL 09/01/2023 8:33 AM [facility] NON HDL CHOLESTEROL 129 <130 MG/DL 09/01/2023 8:33 AM [facility] Comment: NOTE: WHEN THE TRIGLYCERIDES ARE >200 mg/dL, NON HDL C IS A SECONDARY TARGET OF THERAPY, WITH A GOAL 30 mg/dL HIGHER THAN THE IDENTIFIED LDL C GOAL. CHOL/HDL RATIO 3.2 0.0 - 4.5 09/01/2023 8:33 AM [facility] VLDL CALCULATION 42 5 - 55 MG/DL 09/01/2023 8:33 AM [facility] LIPID INTERPRETATION 09/01/2023 8:33 AM [facility] Comment: NIH CONCENSUS REPORT RECOMMENDATIONS: ADULT CHILD LOW RISK: CHOLESTEROL <200 <170 TRIGLYCERIDE <150 --- HDL >=60 --- LDL <100 <110 BORDERLINE: CHOLESTEROL 200-239 170-199 TRIGLYCERIDE 150-199 --- HDL 40-59 --- LDL 100-159 110-129 HIGH RISK: CHOLESTEROL >=240 >=200 TRIGLYCERIDE >=200 --- HDL <40 --- LDL >=160 >=130 09/01/2023 7:22 AM WRAPPER SELECTOR us Keerthi Recinos WING COVERER-C LABORATORY Final Re sult [facility] [address] [place] [address], * BONE DENSITY/DEXA (08/07/2021 8:57 AM WRAPPER SELECTOR) Anatomical Region Laterality Modality Bone Bone Density 08/07/2021 9:23 AM WRAPPER SELECTOR Impressions 08/07/2021 9:34 AM WRAPPER SELECTOR IMPRESSION:===== Lumbar spine bone density: Normal Left [...] 08/07/2021 9:23 AM Narrative 08/07/2021 9:34 AM WRAPPER SELECTOR EXAMINATION: Bone Density Axial EXAM DATE/TIME: 08/07/2021 8:40 AM REASON FOR EXAM: Postmenopausal COMPARISON: None FINDINGS: DEXA bone densitometry The bone mineral density (BMD) was determined by dual-energy x-ray absorptiometry, the results are as follows: AP Lumbar Spine L1 through L4 BMD Patient (GM/SQCM): 0.990 T-Score (Standard deviations from young adult peak bone density): -0.5 Left femoral neck: BMD Patient (GM/SQCM): 0.595 T-Score (Standard deviations from young adult peak bone density): -2.3 Total left femur: BMD Patient (GM/SQCM): 0.772 T-Score (Standard deviations from young adult peak bone density): -1.4 Right femoral neck: BMD Patient (GM/SQCM): 0.715 T-Score (Standard deviations from young adult peak bone density): -1.2 Total right femur: BMD Patient (GM/SQCM): 0.790 T-Score (Standard deviations from young adult peak bone density): -1.2 ===== Procedure Note Anish Beal MD - 08/07/2021 EXAMINATION: Bone Density Axial EXAM DATE/TIME: 08/07/2021 8:40 AM REASON FOR EXAM: Postmenopausal COMPARISON: None FINDINGS: DEXA bone densitometry The bone mineral density (BMD) was determined bydual-energy x-ray absorptiometry, the results are as follows: AP Lumbar Spine L1 through L4 BMD Patient (GM/SQCM): 0.990 T-Score (Standard deviations from young adult [...] 11/24/2017 us Documents Scanned SCANNING Final Result [facility] from Last 3 Months or Most Recently Relevant to Health Maintenance Insurance MEDICARE [place]ICARE [place] Advance Directives Documents on File Type Date Recorded Patient Bath Design Sales Consultant Expl anation Advance Directives and Living Will 12/19/2018 3:37 PM Signed 12-19-18 [facility] r Health Care * Full Code (Latest Code Status on File) Date Activated Date Inactivated Comments 12/20/2018 1:33 PM 12/21/2018 3:28 PM * Full Code Date Activated Date Inactivated Comments 12/19/2018 2:27 AM 12/20/2018 1:33 PM Care Teams Instrumentation Engineer Relationship Specialty Start Date End Date Chrissy Easton, SENIOR STRUCTURAL ENGINEER- [address] [place] [address] PCP - General NURSE PRACTITIONER 10/26/23 Misti Harris MD [facility]. [facility] [address] [place] [address] Peer Tutor INTERVENTIONAL CARDIOLOGY 12/24/18 Rashawn Almazan MD [facility]. [facility] [address] [place] [address] [place] Ultrasound Manager CARDIOVASCULAR DISEASE 12/19/18
[2024-09-05] MEDS: LACTATED RINGERS 1,000 ML 30 ML IV CONT ×2 (10:45→14:35)
[2024-09-05] MEDS: ACETAMINOPHEN 500 MG TABLET 1000 MG PO ×3 (10:51→23:45)
[2024-09-05] MEDS: TRANEXAMIC ACID 1,000MG/ISO100 1,000 MG/100 ML BAG 200 MG IVPB (11:24)
--- NOTE | 2024-09-05 11:48 | WPDANESEPPF ---
Anes - Initial Pre Proc Eval Procedure: Operation Date: 09/05/24 12:00 Proposed Procedures p Right Reverse Total Shoulder Arthroplasty - Arian Mcrae MD Date/Time: 09/05/24 11:48 Surgeon: Arian Mcrae MD Pre Op Diagnosis: Prim OA Rt Shoulder Patient Data Age: 74 Gender: F Height: 1.57 m Weight: 74.8 kg Last Vital Signs Temp 36.7 C 09/05/24 10:15 Pulse 67 09/05/24 10:15 Resp 16 09/05/24 10:15 BP 122/74 09/05/24 10:15 Pulse Ox 98 09/05/24 10:15 O2 Del Method Room Air 09/05/24 10:15 Allergies Allergy/AdvReac Type Severity Reaction Status Date / Time shellfish derived Allergy Mild HIVES AND Verified 09/05/24 11:15 PASSED OUT lisinopril Allergy Unknown Cough Verified 09/05/24 11:17 Penicillins Allergy Unknown HIVES Verified 09/05/24 11:15 propranolol Allergy Unknown SOB, LOWER Verified 09/05/24 11:15 HR Beuqszb-PRY-ZtF Reductase Allergy Unknown Muscle Pain Verified 09/05/24 11:15 Inhibitor Home Medications ?Medication ?Instructions ?Recorded ?Confirmed ?Type amlodipine 2.5 mg tablet 2.5 mg PO DAILY 04/27/24 09/05/24 History clopidogrel 75 mg tablet 75 mg PO DAILY 04/27/24 09/05/24 History losartan 25 mg tablet 25 mg PO DAILY 04/27/24 09/05/24 History metoprolol succinate 25 mg 12.5 mg PO HS 04/27/24 09/05/24 History tablet,extended release 24 hr rosuvastatin 5 mg tablet 5 mg PO DAILY 04/27/24 09/05/24 History artifi.tears(hypromellose)(PF) 1.7 1 drp EACH EYE DAILY PRN dry eyes 05/23/24 08/10/24 History % eye drops with applicator ascorbic acid (vitamin C) 1,000 mg 500 mg PO DAILY 05/23/24 09/05/24 History tablet cholecalciferol (vitamin D3) 10 10 mcg PO DAILY 05/23/24 09/05/24 History mcg (400 unit) tablet (Vitamin D3) multivitamin 1 tablet PO DAILY 05/23/24 09/05/24 History nitroglycerin 0.4 mg sublingual 0.4 mg sublingual Q5M PRN chest 05/23/24 08/10/24 History tablet pain omega 4-ipe-snp-fish oil 1,000 mg 1 cap PO DAILY 05/23/24 09/05/24 History (120 mg-180 mg) capsule (Fish Oil) potassium chloride 8 mEq 8 meq PO DAILY 05/23/24 09/05/24 History capsule,extended release acetaminophen 325 mg tablet (Pain 650 mg PO PRN PRN pain 08/10/24 09/05/24 History Relief (acetaminophen)) omeprazole 20 mg tablet,delayed 20 mg PO DAILY 08/10/24 09/05/24 History release thyroid (pork) 90 mg tablet (BASEBALL INSPECTOR AND REPAIRER 90 mg PO DAILY 08/10/24 09/05/24 History Thyroid) Laboratory Tests 09/05/24 10:26 Blood Type O Positive Antibody Screen Pending Patient hx anesthesia problems: none Family hx anesthesia problems: none Results Review: All pre-operative results and documents have been reviewed as part of the pre-operative evaluation. [facility] Past Medical History Medical History (Updated 09/05/24 @ 11:12 by Solitario Vogt DO) History of heart attack Hyperlipidemia Hypertension History of esophageal dilatation (~2021) History of cardiac disorder Heart surgery with stent placement Surgical History Surgical History History of colonoscopy (~2017) History of vitrectomy (~2017) History of repair of rotator cuff (~2011) Right bicep tendon repair History of thyroidectomy (~2007) History of cholecystectomy (~2004) History of partial hysterectomy (~1989) History of laminectomy (~1984) History of tubal ligation (~1979) History of reverse total replacement of left shoulder joint (~2022) History of repair of right rotator cuff (~05/12/11) w/Biceps Tendon Repair, Subacromial Decompression Family History Family History Mother Hypertension Family history of coronary artery disease, Onset Age: 80 Patient's mother is Sibling Family history of malignant neoplasm Social History Social History Smoking status: Never smoker Second hand tobacco smoke exposure: No Alcohol intake: current Do You Feel Safe in your Home?: Yes Lack of Transportation: No Lack of Food: Never True Current Housing: I Have Housing Concerned About Future Housing: No Difficulty Paying Gas/Electric Bills: No Difficulty Paying for Meds: No Currently Unemployed: No Education: Associate Degree Difficulty w/ Childcare or Family Care: No Anes - Eval Final PreProcedure Day of Procedure 09/05/24 11:48 Patient weight: obese Heart: regular rate and rhythm Lungs: clear to auscultation Airway: Mallampati scale class II Neurological: alert and oriented Last oral intake: >/= 8 hours ASA classification: III Emergent: no Anesthetic plan: proceed Anesthesia type and monitoring: general ETT and standard monitoring Results Review: All pre-operative results and documents have been reviewed as part of the pre-operative evaluation. Informed Consent: The patient's anesthetic plan and its attendant risks and benefits were discussed with the patient/family/POA. Questions were solicited and answers provided to the satisfaction of the patient/family/POA.
--- NOTE | 2024-09-05 11:58 | WPDHPUPDATE1 ---
History and Physical Update Update Date/Time: 09/05/24 11:58 History and Physical has been reviewed, including an updated exam of the patient. There are NO changes in the patient's condition. Risks, benefits, and alternatives have been discussed and questions answered. Patient agrees to proceed with procedure.
[2024-09-05] MEDS: ceFAZolin 2 GM/D5W 50 ML 2 GM/50 ML BAG IVPB ×2 (12:09→20:10)
[2024-09-05] MEDS: SODIUM CHLORIDE 0.9% IV 37.7 ML, MORPHINE SULFATE INJ (*CRX) 2 MG, ROPivacaine HCL 1% 2... INFILTRATE (13:03)
[2024-09-05] MEDS: VANCOMYCIN HCL 1,000 MG VIAL 1000 MG TOPICAL (13:05)
--- NOTE | 2024-09-05 14:33 | P.OP_ITS ---
Procedure Note - Detailed Date of Procedure 09/05/24 Pre-op Diagnosis Rotator cuff arthropathy right shoulder Post-op Diagnosis Same Procedure Performed Reverse total shoulder arthroplasty, right Surgeon Arian Mcrae MD Pres[employer] Associate Teacher Sonia Montana PA-C Anesthesia General Findings Extensive erosive degenerative changes with cyst formation and large osteophytes particularly on the anterior humerus. There were extensive adhesions in the subacromial space. Large flat glenoid with 10? retroversion and 3? superior angulation. Component positioning planned with 3 dimensional software. 10 degree augmented base plate utilized. Good bone quality for screw purchase. Satisfactory bone quality on the humerus. The subscapularis was severely attenuated, but was repairable. Description of Procedure Preoperative antibiotics were given. The patient was transferred to the operating room and a general anesthetic was administered. The beach chair position was used at 45 degrees. All bony prominences were padded. The head was carefully stabilized on the [facility] dehydrogenation operator head. A sterile prep and drape was performed in the usual manner with ChloraPrep. A longitudinal incision was created at the anterior shoulder just lateral to the deltopectoral interval. Hydrogen peroxide was placed on the incision and then rinsed after one minute. Careful dissection was performed to expose the interval and protect the cephalic vein. The vein was retracted medially. The upper border of the pectoralis was not released. Anterior circumflex vessel branches were suture ligated. The biceps was tenodesed. A subscapularis tenotomy was performed. The inferior capsule was released, exposing the humeral head. Osteophytes were removed. Care was taken to stay on bone to protect the axillary nerve. The anatomic head cut was taken with the oscillating saw. The guide pin was placed, central drilling performed, and the broach trial inserted. The neck anteversion and inclination were carefully assessed. The cut protector was placed, and attention was turned to the glenoid. Retractors were placed. Releases were carried out for exposure. The subscapularis was mobilized, the inferior capsule and long head of triceps released, and the superior and middle glenohumeral ligaments released as well. Labral tissue was resected as needed. Version and inclination were corrected according to preoperative templating. The sizing template was used to assess the baseplate position low on the glenoid, with an approximate 10 degrees corrections of retroversion and 3 degrees of inclination. A guide pin was placed. A 10 degree augmented base plate was selected. Minimal reaming was used to accomplish a flat surface without violating the subchondral bone. The boss was drilled, and the real component was impacted into position. The central compression screw was placed with good purchase. Supplemental locking screws were placed superiorly, and inferiorly. The glenosphere was impacted into the taper. The proximal humerus was reamed for the inset component. The humeral components were trialed. The +3 mm poly had good soft tissue tension. Bone graft from the humeral head was placed in the proximal humerus. The stem was up sized to the size 1, for improved Press-Fit. The real humeral stem, tray, and insert were impacted into position. The shoulder was copiously irrigated periodically with pulsatile lavage. The shoulder was reduced and stability confirmed. 1 gram of Vancomycin powder was placed in the joint. The remaining tissue was closed with 2-0 Vicryl, 3-0 Stratafix and 4-0 Stratafix, and steri- strips. A sterile silver occlusive dressing and shoulder immobilizer were placed. The patient was transferred to the recovery room. Physician anesthesiologist assistant certified, Margo Perry PA-C, required for surgery; including patient positioning, draping, tissue retraction, maintaining instrument position, [cement removal, ]wound closure, and dressing placement. Implants Shoulder Innovations reverse TSA size 1 stem. +3 polyethylene insert. 10 augmented baseplate. 33+3 mm glenosphere. Estimated Blood Loss 200 Drains No Pathology None sent Complications No immediate complications Condition Stable Disposition PACU [facility] Billing Surgery - Charge Forward: Surgery Billing
[2024-09-05] MEDS: fentaNYL CITRATE INJ (*CRX) 100 MCG/2 ML VIAL 25 MCG IV PUSH ×4 (14:40→14:55)
--- NOTE | 2024-09-05 15:06 | WPDANESPNB ---
Anes - Peripheral Nerve Block Date/Time: 09/05/24 15:06 I have discussed with the patient/family/POA the placement of a peripheral nerve block for post-operative pain management, including associated risks, benefits, complications, and side effects. Alternative methods of post-operative analgesia were detailed. Questions were solicited and answers provided to the satisfaction of the patient/family/POA. Time-Out: A pre-procedural Time-Out was completed immediately before starting the procedure and confirmed: Patient Identification, Site, Procedure, Patient Position and the Availability of Requisite Equipment. Clinical Indications: Acute post-operative pain management requested by the operative surgeon. Nerve Block Insertion Note Anes-nerve block: interscalene right Patient position: supine Skin prep: chlorhexidine Needle: 22 gauge, stimulating, insulated echogenic needle. Needle length: 50 mm Technique: ultrasound Injectate: bupivacaine 0.5% with epi 5 mcg/ml (20cc- no epi) Observations: tolerated well Complications: none Procedure start time:: 1458 Procedure end time:: 1501
--- NOTE | 2024-09-05 16:30 | ADMGEN ---
This patient, Liseth Mckeon, was admitted to 2 Medical Room 256-01. Patient/family oriented to hospital policies and general routines including ID bracelet, bed and alarms, visiting hours, pain management, procedures, bathroom and other care routines, personal items, smoking policy, room service/diet, and visiting hours. Information on how to activate the Rapid Response Team has been discussed. Patient/Family are encouraged to report perceived risks to care and to ask questions if they do not understand what they are told or what they should do.
[2024-09-05] MEDS: SENNA/DOCUSATE SODIUM TABLET 2 TAB PO (17:15)
[2024-09-05] MEDS: ASPIRIN 81 MG ENTERIC TABLET PO (17:16)
[2024-09-05] MEDS: FAMOTIDINE 20 MG TABLET PO (20:10)
[2024-09-05] MEDS: METOPROLOL SUCCINATE EXT REL 12.5 MG TABCR PO (20:10)
[2024-09-06 00:07] VITALS: BP 100/59; PULSE 59; RESP 20; TEMP 36.6; O2SAT 95
[2024-09-06] MEDS: ceFAZolin 2 GM/D5W 50 ML 2 GM/50 ML BAG IVPB ×2 (04:07→11:07)
[2024-09-06 04:30] VITALS: BP 131/65; PULSE 56; RESP 20; TEMP 36.6; O2SAT 95
[2024-09-06] MEDS: ACETAMINOPHEN 500 MG TABLET 1000 MG PO ×2 (05:47→11:07)
[2024-09-06 06:07] LABS: Basophils Percent Auto 0.2 % (0.2-1.2); Hemoglobin 13.4 g/dL (12.0-15.0); Immature Granulocyte Absolute 0.04 K/mm3 (0.00-0.031); Immature Granulocyte Percent A 0.3 % (0-0.5); Lymphocytes Percent Auto 7.2 % (18.3-44.2); Mean Corpuscular HGB Conc 32.7 g/dl (32-36); Mean Corpuscular Hemoglobin 31.2 pg (26-34); Mean Corpuscular Volume 95.3 fl (80-100); Mean Platelet Volume 9.3 fl (7.4-10.4); Monocytes Absolute Auto 1.1 K/mm3 (0.1-0.6); Monocytes Percent Auto 8.5 % (2.6-8.5); Neutrophils Absolute Auto 10.6 K/mm3 (1.3-6.7); Neutrophils Percent Auto 83.8 % (45.5-73.1); Platelet Count Result 208 k/mm3 (150-375); Red Cell Distribution Width 12.3 % (11.5-14.5); White Blood Count 12.6 K/mm3 (4.5-10.0)
[2024-09-06 06:16] LABS: Anion Gap 9 mmol/L (4-12); Blood Urea Nitrogen 16 mg/dL (7-17); Calcium 8.1 mg/dL (8.4-10.2); Carbon Dioxide 24 mmol/L (22-30); Chloride 101 mmol/L (98-107); Estimated CRCL calculation 62 ml/min; Estimated Glomerular Filt Rate > 60; Glucose 114 mg/dL (65-110); Potassium 4.1 mmol/L (3.4-5.0); Sodium 134 mmol/L (137-145)
[2024-09-06 08:03] VITALS: BP 114/59; PULSE 62; RESP 18; TEMP 36.4; O2SAT 96
[2024-09-06] MEDS: ASPIRIN 81 MG ENTERIC TABLET PO (08:06)
[2024-09-06] MEDS: FAMOTIDINE 20 MG TABLET PO (08:06)
[2024-09-06] MEDS: SENNA/DOCUSATE SODIUM TABLET 2 TAB PO (08:06)
[2024-09-06] MEDS: OMEGA 3 POLYUNSAT FATTY ACIDS 1 GM CAP PO (08:06)
[2024-09-06] MEDS: ROSUVASTATIN 5 MG TABLET PO (08:07)
[2024-09-06] MEDS: amLODIPine BESYLATE 2.5 MG TABLET PO (08:07)
[2024-09-06] MEDS: PANTOPRAZOLE 40 MG TABLET PO (08:07)
[2024-09-06] MEDS: LOSARTAN POTASSIUM 25 MG TABLET PO (08:07)
[2024-09-06] MEDS: polyethylene glycoL 3350 17 GM POWD.PACK PO (08:08)
--- NOTE | 2024-09-06 09:44 | WPDANESPN ---
Anes - Prog Note Post-Op Date/Time: 09/06/24 09:44 Cardiovascular status: normal Respiratory status: normal Airway patency: baseline Mental status: baseline Post-Op hydration status: normal Vital Signs: Last Vital Signs Temp 36.4 C 09/06/24 08:03 Pulse 62 09/06/24 08:03 Resp 18 09/06/24 08:03 BP 114/59 L 09/06/24 08:03 Pulse Ox 96 09/06/24 08:03 O2 Del Method Room Air 09/05/24 20:00 O2 Flow Rate 2 09/05/24 16:05 Pain Score (VAS): 08/29 I/O: Intake & Output 09/05/24 09/06/24 09/06/24 23:59 07:59 15:59 Intake Total 290 50 240 Balance 290 50 240 Laboratory Tests 09/06/24 05:49 09/06/24 05:49 09/05/24 09/06/24 10:26 05:49 WBC 12.6 H RBC 4.30 Hgb 13.4 Hct 41.0 MCV 95.3 MCH 31.2 MCHC 32.7 RDW 12.3 Plt Count 208 MPV 9.3 Immature Gran % (Auto) 0.3 Neut % (Auto) 83.8 H Lymph % (Auto) 7.2 L [place] % (Auto) 8.5 Eos % (Auto) 0.0 Baso % (Auto) 0.2 Lymph # (Auto) 0.90 [place] # (Auto) 1.1 H Eos # (Auto) 0.0 Baso # (Auto) 0.0 Abs Immat Gran (auto) 0.04 H Absolute Neuts (auto) 10.6 H Absolute Nucleated RBC 0.000 Nucleated RBC % 0.0 Sodium 134 L Potassium 4.1 Chloride 101 Carbon Dioxide 24 Anion Gap 9 BUN 16 Creatinine 0.65 L Estim Creat Clear Calc 62 Estimated GFR > 60 Glucose 114 H Calcium 8.1 L Blood Type O Positive Antibody Screen Negative Post-procedural complaints: none Patient Feedback: Patient satisfied with anesthetic care.
[2024-09-06 14:15] VITALS: BP 107/64; PULSE 70; RESP 14; TEMP 36.6; O2SAT 95
== END 2024-09-06 16:34 | disposition home or self-care (01) ==
LOC: ANHSURGERY 12:42 → ANH2MED 16:29
PROVIDERS: Physician Assistant Surgical; Visit Provider Orthopaedic Surgery
PROC: (CPT 23472; principal; 2024-09-05 12:00)
DX: M19.011 Primary osteoarthritis, right shoulder (principal); M25.711 Osteophyte, right shoulder; M75.01 Adhesive capsulitis of right shoulder; G89.18 Other acute postprocedural pain; E78.5 Hyperlipidemia, unspecified; I10 Essential (primary) hypertension; I25.2 Old myocardial infarction; E66.9 Obesity, unspecified; Z68.30 Body mass index [BMI] 30.0-30.9, adult; Z79.02 Long term (current) use of antithrombotics/antiplatelets; Z98.890 Other specified postprocedural states; Z95.5 Presence of coronary angioplasty implant and graft; Z90.49 Acquired absence of other specified parts of digestive tract; Z98.51 Tubal ligation status; Z87.19 Personal history of other diseases of the digestive system; Z80.9 Family history of malignant neoplasm, unspecified; Z82.49 Family history of ischemic heart disease and other diseases of the circulatory system
CPT/HCPCS: 64415; 23472; 36415; 73030; 80048; 85025; 86850; 86900; 86901; 97110; 97161; 97165; 97535; A9270; J0171; J0690; J1100; J1885; J2003; J2270; J2405; J2704; J2795; J3010; J3370; J7120

== ENCOUNTER 2024-11-30 11:36 | Outpatient (CLI) | payer MEDICARE, OTHER, SELFPAY ==
--- NOTE | ~2024-11-30 | XR_ITS ---
XR scapula RT Ordering provider: TALHA Bains History: . Z96.611 - Presence of right artificial shoulder joint . Comparison: None. FINDINGS: BONES: No acute fracture or dislocation. JOINT SPACES: The acromioclavicular joint shows severe osteoarthritic changes. Right shoulder arthrop lasty. SOFT TISSUES: Normal. IMPRESSION: No acute osseous abnormality right shoulder. Right shoulder arthroplasty. Reviewed, dictated and finalized at location A.
--- NOTE | ~2024-11-30 | XR_ITS ---
Right Shoulder Technique: AP and axillary views were obtained. Clinical History: Posterior COMPARISON: 11/30/2024 Findings: No fracture or dislocation is seen. Versus glenohumeral arthroplasty is unchanged. Stable d egenerative change of the AC joint. Soft tissues are unremarkable. Impression: No acute abnormality. Stable glenohumeral joint arthroplasty. Stable AC joint degenerative change. Reviewed, dictated and finalized at location . Impression: No acute abnormality. Stable glenohumeral joint arthroplasty. Stable AC joint degenerative change.
== END 2024-11-30 11:37 | disposition home or self-care (01) ==
PROVIDERS: Visit Provider Physician Assistant Surgical
DX: M19.011 Primary osteoarthritis, right shoulder (principal); Z96.611 Presence of right artificial shoulder joint
CPT/HCPCS: 73010; 73030